=== PATIENT | female | born 2000 ===

== ENCOUNTER 2022-01-08 05:16 | Emergency (ER) | payer MEDICAID, SELFPAY ==
--- OUTSIDE RECORDS SUMMARY | 2022-01-08 05:28 | XMS_ITS | Encounter Summary ---
:[address] [facility] Address [address] [place] [address] Care Team Providers Name Role Phone Link, Shanda DUPREE Primary Care Provider Reason for Visit Reason Comments Psychotherapy Follow-up Encounter Details Date Type Department Care Team Description 06/24/2020 Telemedicine [facility] Laura Catherine Adjustment disorder Medical Psychology - [address] [facility] [place] [address] and depressed mood 111 [facility] (Primary Dx) [place] [address] [phone] Social History Tobacco Use Types Packs/Day Years Used Date Never Smoker Smokeless Tobacco: Never Used Alcohol Use Standard Drinks/Week Comments Not Currently 0 (1 standard drink = 0.6 oz pure alcoho l) Alcohol Habits Answer Date Recorded How often do you have a drink containing alcohol? Never 12/16/2020 How many drinks containing alcohol do you have on a typical Not asked day when you are drinking? How often do you have six or more drinks on one occasion? Ne gallo 12/16/2020 Comment: Not asked Social Isolation Answer Date Recorded In a typical week, how many times do you Twice a week 12/16/2020 talk on the phone with family, friends, or neighbors? How often do you get together with friends More than three t imes a week 12/16/2020 or relatives? How often do you attend christian or Never 2020 hoahaoism services? Do you belong to any clubs or No 12/16/2020 organizations such as christian groups, unions, fraternal or athletic groups, or school groups? How often do you attend meetings of the Never 12/16/2020 clubs or organizations you belong to? Are you now , , , Patient refused 12/16/2020 , never or living with a partner? Physical Activity Answer Date Recorded On average, how many days per week do you engage in moderate to 1 day 12/16/2020 strenuous exercise (like walking fast, running, jogging, dancing, swimming, biking, or other activities that cause a light or heavy sweat)? On average, how many minutes do you engage in exercise at th is 30 min 12/16/2020 level? Stress Answer Date Recorded Do you feel stress - tense, restless, nervous, or To some ex tent 12/16/2020 anxious, or unable to sleep at night because your mind is troubled all the time - these days? Financial Resource Strain Answer Date Recorded How hard is it for you to pay for the very basics like Not v divya hard 09/29/2021 food, housing, medical care, and heating? Intimate Partner Violence Answer Date Recorded Within the last year, have you been afraid of your partner o r No 12/16/2020 ex-partner? Within the last year, have you been humiliated or emotionall y No 12/16/2020 abused in other ways by your partner or ex-partner? Within the last year, have you been kicked, hit, slapped, or No 12/16/2020 otherwise physically hurt by your partner or ex-partner? Within the last year, have you been raped or forced to have any No 12/16/2020 kind of sexual activity by your partner or ex-partner? Food Insecurity Answer Date Recorded Within the past 12 months, you worried that your food Never true 09/29/2021 would run out before you got money to buy more. Within the past 12 months, the food you bought just Sometime s true 09/29/2021 didn't last and you didn't have money to get more. Transportation Needs Answer Date Recorded In the past 12 months, has lack of transportation kept you f rom No 09/29/2021 medical appointments or from getting medications? In the past 12 months, has lack of transportation kept you f rom No 09/29/2021 meetings, work, or getting things needed for daily living? Housing Stability Answer Date Recorded In the last 12 months, was there a time when you were not ab le No 09/29/2021 to pay the mortgage or rent on time? In the last 12 months, how many places have you lived? 2 09/29/2021 In the last 12 months, was there a time when you did not hav e a No 09/29/[address] or slept in a long-term (including now)? Sex Assigned at Date Recorded Female 12/16/2020 9:36 EDT documented as of this encounter Plan of Treatment Upcoming Encounters Date Type Specialty Care Team Description 03/15/2022 Office Visit Dermatology Kerry Clark MD 111 [facility] 3 [place] [address] (Wo rk) documented as of this encounter Visit Diagnoses Diagnosis Adjustment disorder with mixed anxiety a nd depressed mood - Primary documented in this encounter Care Teams Ux Developer Relationship Specialty Start Date End Date Shanda Gomes MD PCP - General 04/30/19 1 [facility] Level [address] [place] [address] documented as of this encounter
--- OUTSIDE RECORDS SUMMARY | 2022-01-08 05:28 | XMS_ITS | Encounter Summary ---
:2002 Author Organization [facility] Address [address] [place] [address] Care Team Providers Name Role Phone Link, Shanda DUPREE Primary Care Provider Reason for Visit Reason Comments Telemedicine Video Visit Encounter Details Date Type Department Care Team Description 12/23/2020 Telemedicine [facility] Laura Catherine Adjustment disorder Medical Psychology - [address] [facility] [place] [address] and depressed mood 111 [facility] (Primary Dx) [place] [address] [phone] Social History Tobacco Use Types Packs/Day Years [...] or relatives? How often do you attend jehovah's witness or Never 2020 jewish services? Do you belong to any clubs or No 12/16/2020 organizations such as jehovah's witness groups, unions, fraternal or athletic groups, or [...] place to sleep or slept in a retirement (including now)? Education Answer Date Recorded What is the highest level of school you have GED or equivale nt 12/16/2020 completed or the highest degree you have received? Sex Assigned at Date Recorded Female 12/16/2020 9:36 EDT COVID-19 Exposure Response Date Recorded In the last month, have you been in contact with No / Unsure 12/17/2020 9:28 EDT someone who was confirmed or suspected to have Coronavirus / COVID-19? documented as of this encounter Plan of Treatment Upcoming Encounters Date Type Specialty Care Team Description 03/15/2022 Office Visit Dermatology Kerry Clark MD 111 [facility] 3 [place] [address] (Wo rk) documented as of this encounter Visit Diagnoses Diagnosis Adjustment disorder with mixed anxiety a nd depressed mood - Primary documented in this encounter Care Teams Diabetes Solutions Specialist Relationship Specialty Start Date End Date Shanda Gomes MD PCP - General 04/30/19 1 [facility] Level [address] [place] [address] documented as of this encounter
--- OUTSIDE RECORDS SUMMARY | 2022-01-08 05:28 | XMS_ITS | Encounter Summary ---
:2002 Author Organization [facility] Address [address] [place] [address] Care Team Providers Name Role Phone Link, Shanda DUPREE Primary Care Provider Reason for Visit Reason Comments Psychotherapy Follow-up Encounter Details Date Type Department Care Team Description 07/22/2020 Telemedicine [facility] Laura Catherine Adjustment disorder Medical Psychology - [address] [facility] [place] [address] [address] [facility] (Primary [place]x) [place] [address] [phone] Social History Tobacco Use Types Packs/Day Years [...] or relatives? How often do you attend scientology or Never 2020 orthodoxy services? Do you belong to any clubs or No 12/16/2020 organizations such as scientology groups, unions, fraternal or athletic groups, or [...] place to sleep or slept in a group home (including now)? Sex Assigned at Date Recorded Female 12/16/2020 9:36 EDT documented as of this encounter Plan of Treatment Upcoming Encounters Date Type Specialty Care Team Description 03/15/2022 Office Visit Dermatology Kerry Clark MD 111 [facility] 3 [place] [address] (Wo rk) documented as of this encounter Visit Diagnoses Diagnosis Adjustment disorder with mixed anxiety a nd depressed mood - Primary documented in this encounter Care Teams Chipper Feeder Relationship Specialty Start Date End Date Shanda Gomes MD PCP - General 04/30/19 1 [facility] Level [address] [place] [address] documented as of this encounter
--- OUTSIDE RECORDS SUMMARY | 2022-01-08 05:28 | XMS_ITS | Encounter Summary ---
:2002 Author Organization [facility] Address [address] [place] [address] Care Team Providers Name Role Phone Link, Shanda DUPREE Primary Care Provider Reason for Visit Reason Comments Immunizations Here for a Menactra vaccinat ion- required by [facility] Encounter Details Date Type Department Care Team Description 06/02/2021 Nurse Only [facility], [facility] for [facility]eds (Primary Dx) Primary Care - [address] [address] Social History Tobacco Use Types Packs/Day Years [...] or relatives? How often do you attend jewish or Never 2020 evangelical services? Do you belong to any clubs or No 12/16/2020 organizations such as jewish groups, unions, fraternal or athletic groups, or [...] pay for the very basics like Not meagan divya hard 09/29/2021 food, housing, medical care, [...] place to sleep or slept in a [place] [facility] [place] (including now)? Education Answer Date Recorded What is the highest level of school you have GED or equivale nt 12/16/2020 completed or the highest degree you have received? Sex Assigned at Date Recorded Female 12/16/2020 9:36 EDT documented as of this encounter Progress Notes Dixie Valencia RN - 06/02/2021 0915 EST Pt walks into clinic today. Would like to sign up for classes today and unable to due to prompt by [facility] [employer] [facility] for meningococcal vaccination Reviewed documentation/ immunization record Phone call made to ID Spoke to ELVIS rios: Filemon Wilson Advised that [facility] is likely requiring Menactra vaccination due to the fact that it was administered >5 years ago. Prompted to check w/ [facility] Student [facility] currently closed for lunch hour Pt is in waiting room- would like to sign up for classes today, JE. Reviewed with POD/Td Sullivan MD and confirmed that it is ok for pt to receive administrationof Menactra today Administered without complication. I was supervised by Td Sullivan MD who was present and immediately available in the office suite. DIXIE VALENCIA RN 06/02/2021 12:35 Copy of imm record faxed to [facility] immunization compliance team at [phone] documented in this encounter Plan of Treatment Upcoming Encounters Date Type Specialty Care Team Description 03/15/2022 Office Visit Dermatology Kerry Clark MD 111 [facility], [facility], Level [address] [place], [place] [address] (Wo rk) documented as of this encounter Visit Diagnoses Diagnosis Need for vaccination - Primary Need for prophylactic vaccination and in oculation against unspecified single disease documented in this encounter Orders Immunization/Injection Count Last Ordered Date First O rdered Date MENINGOCOCCAL CONJUGATE (MCV4) VACCINE 1 1 (MENACTRA) 4-VALENT IM documented in this encounter Care Teams Balance Engineer Relationship Specialty Start Date End Date Shanda Gomes MD PCP - General 04/30/19 1 [facility] 3 [place] [address] documented as of this encounter
--- OUTSIDE RECORDS SUMMARY | 2022-01-08 05:28 | XMS_ITS | Encounter Summary ---
:2002 Author Organization [facility] Address [address] [place] [address] Care Team Providers Name Role Phone Link, Shanda DUPREE Primary Care Provider Reason for Visit Reason Comments Psychotherapy Follow-up Encounter Details Date Type Department Care Team Description 07/08/2020 Telemedicine [facility] Laura Catherine Adjustment disorder Medical Psychology - 111 [facility] [place] [address] and depressed mood 111 [facility] (Primary Dx) [place] [address] [phone] Social History Tobacco Use Types Packs/Day Years [...] or relatives? How often do you attend hindu or Never 2020 scientology services? Do you belong to any clubs or No 12/16/2020 organizations such as hindu groups, unions, fraternal or athletic groups, or [...] place to sleep or slept in a alf (including now)? Sex Assigned at Date Recorded Female 12/16/2020 9:36 EDT documented as of this encounter Plan of Treatment Upcoming Encounters Date Type Specialty Care Team Description 03/15/2022 Office Visit Dermatology Kerry Clark MD 111 [facility] 3 [place], [place] [address] (Wo rk) documented as of this encounter Visit Diagnoses Diagnosis Adjustment disorder with mixed anxiety a nd depressed mood - Primary documented in this encounter Care Teams Lead Pourer Relationship Specialty Start Date End Date Shanda Gomes MD PCP - General 04/30/19 1 [facility] Level [address] [place] [address] documented as of this encounter
--- OUTSIDE RECORDS SUMMARY | 2022-01-08 05:28 | XMS_ITS | Encounter Summary ---
:2002 Author Organization [facility] Address [address] [place] [address] Care Team Providers Name Role Phone Link, Shanda DUPREE Primary Care Provider Encounter Details Date Type Department Care Team Description 12/17/2020 Travel Social History Tobacco Use Types Packs/Day Years [...] or relatives? How often do you attend mu-ism or Never 2020 yarsanism services? Do you belong to any clubs or No 12/16/2020 organizations such as mu-ism groups, unions, fraternal or athletic groups, or [...] place to sleep or slept in a penitentiary (including now)? Education Answer Date Recorded What [...] Office Visit Dermatology Kerry Clark MD 111 [facility] Level [address] [place], [place] [address] (Wo rk) documented as of this encounter Visit Diagnoses Not on filedocumented in this encounter Care Teams Video Editing Intern Relationship Specialty Start Date End Date Shanda Gomes MD PCP - General 04/30/19 1 [facility] Level [address] [place] [address] documented as of this encounter
--- OUTSIDE RECORDS SUMMARY | 2022-01-08 05:28 | XMS_ITS | Encounter Summary ---
:[address] [facility] Address [address] [place] [address] Care Team Providers Name Role Phone Link, Shanda DUPREE Primary Care Provider Reason for Visit Reason Comments Immunizations Here today for her Men.B skip t Encounter Details Date Type Department Care Team Description 03/10/2021 Nurse Only [facility] [place] [facility] (Primary Dx) Primary Care - [address] [address] Social History Tobacco Use Types [...] or relatives? How often do you attend congregational or Never 2020 gnosticism services? Do you belong to any clubs or No 12/16/2020 organizations such as congregational groups, unions, fraternal or athletic groups, or [...] place to sleep or slept in a usp (including now)? Education Answer Date Recorded What is the highest level of school you have GED or equivale nt 12/16/2020 completed or the highest degree you have received? Sex Assigned at Date Recorded Female 12/16/2020 9:36 EDT documented as of this encounter Progress Notes Susu Hughes LPN - 03/10/2021 1415 EDT Bexsero given per PCP order. See immunization report for lot numbers. Patient tolerated as expected. I was supervised by Dr. Sullivan who was present and immediately available in the office suite. SUSU HUGHES LPN 03/10/2021 14:28 Patient Education Topic: Vaccine Method: Verbal Taught to: Patient Barriers: None Outcomes: independent Signature: documented in this encounter Plan of Treatment Upcoming Encounters Date Type Specialty Care Team Description 03/15/2022 Office Visit Dermatology Kerry Clark MD 111 [facility] 3 [place], [place] [address] (Wo rk) documented as of this encounter Visit Diagnoses Diagnosis Need for vaccination - Primary Need for prophylactic vaccination and in oculation against unspecified single disease documented in this encounter Orders Immunization/Injection Count Last Ordered Date First O rdered Date MENINGOCOCCAL B VACCINE (BEXSERO), 1 03/10/2021 RECOMBINANT, [facility] IM documented in this encounter Care Teams Band Nailer Relationship Specialty Start Date End Date Shanda Gomes MD PCP - General 04/30/19 1 [facility] Level [address] [place] [address] documented as of this encounter
--- OUTSIDE RECORDS SUMMARY | 2022-01-08 05:28 | XMS_ITS | Encounter Summary ---
:2002 Author Organization [facility] Address [address] [place] [address] Care Team Providers Name Role Phone Link, Shanda DUPREE Primary Care Provider Reason for Visit Reason Comments Telemedicine Video Visit Encounter Details Date Type Department Care Team Description 01/06/2021 Telemedicine [facility] Laura Catherine Adjustment disorder Medical Psychology - 111 [facility] [place] [address] and depressed mood 111 [facility] (Primary Dx) [place] [address] [phone] Social History Tobacco Use Types Packs/Day Years [...] or relatives? How often do you attend sabianist or Never 2020 temple services? Do you belong to any clubs or No 12/16/2020 organizations such as sabianist groups, unions, fraternal or athletic groups, or [...] place to sleep or slept in a jail (including now)? Education Answer Date Recorded What [...] Office Visit Dermatology Kerry Clark MD 111 [facility] 3 [place] [address] (Wo rk) documented as of this encounter Visit Diagnoses Diagnosis Adjustment disorder with mixed anxiety a nd depressed mood - Primary documented in this encounter Care Teams Iridologist Relationship Specialty Start Date End Date Shanda Gomes MD PCP - General 04/30/19 1 [facility] Level [address] [place] [address] documented as of this encounter
--- OUTSIDE RECORDS SUMMARY | 2022-01-08 05:28 | XMS_ITS | Encounter Summary ---
:2002 Author Organization [facility] Address [address] [place] [address] Care Team Providers Name Role Phone Link, Shanda DUPREE Primary Care Provider Reason for Visit Reason Comments Telemedicine Video Visit Encounter Details Date Type Department Care Team Description 08/12/2020 Telemedicine [facility] Laura Catherine Adjustment disorder Medical Psychology - 111 [facility] [place] [address] and depressed mood 111 [facility] (Primary Dx) [place] [address] [phone] Social History Tobacco Use Types Packs/Day Years [...] or relatives? How often do you attend bahai or Never 2020 christian services? Do you belong to any clubs or No 12/16/2020 organizations such as bahai groups, unions, fraternal or athletic groups, or [...] Office Visit Dermatology Kerry Clark MD 111 [facility] 3 [place], [place] [address] (Wo rk) documented as of this encounter Visit Diagnoses Diagnosis Adjustment disorder with mixed anxiety a nd depressed mood - Primary documented in this encounter Care Teams Stranding Machine Operator Relationship Specialty Start Date End Date Shanda Gomes MD PCP - General 04/30/19 1 [facility] Level [address] [place] [address] documented as of this encounter
--- OUTSIDE RECORDS SUMMARY | 2022-01-08 05:28 | XMS_ITS | Clinical Summary ---
:2000 Author Organization [facility] Address [address] [place] [address] Care Team Providers Name Role Phone Link, Shanda DUPREE Primary Care Provider Allergies No known active allergies Medications Medication Sig Dispensed Refills Start Date End Date Status Benzoyl Peroxide 10 % Use in shower on 227 g 5 12/17/2020 Active cleanserIndications: back twice weekly Acne vulgaris clindamycin (CLINDAGEL) Apply every 60 g 5 12/17/2020 Active 1 % gel morning tretinoin microspheres Apply to affect 45 g 12/17/2020 Active (RETIN-A MICRO) 0.04 % area(s) as gel directed. desogestreL-ethinyl Take 1 Tab by 28 Tab 4 12/17/2020 Active estradioL (APRI) mouth daily. 0.15-0.03 mg per tablet Active Problems Patient Care Coordination Note Formatting of this note might be differe nt from the original. Clinic: Please confirm that PT does not have a Middle Initial. Rachael Herb 10/05/2021 18:56 Problem Noted Date Acne vulgaris 09/12/2019 Immunizations Name Administration Dates Next Due Covid-19 mRNA Vaccine (PFIZER COVID-19) 12/06/2020, 11/16/19 21 PF 0.3 ml IM (12 yrs+) Hepatitis A Vaccine Ped-Adol 12/17/2020, 08/15/2019 (HAVRIX/VAQTA) 2 Dose IM Historical HPV Vaccine, Unspecified 10/11/2015 Historical Hepatitis B Vaccine, 01/05/2015, 06/09/2014, 090 03/2014 Unspecified Historical Meningococcal ACWY Vaccine, 06/09/2014 Unspecified Historical Meningococcal MCV4 Conjugate 03/31/2014 Vaccine, Unspecified Human Papillomavirus (HPV9) 9-Valent 04/30/2019 Vaccine (GARDASIL-9) IM Influenza Vaccine Quad PF 0.5 ml IM (6 04/30/2019 mos+) MMR Vaccine SQ 03/31/2015 MMR and Varicella Combined Vaccine 07/28/2013 (PROQUAD) SQ Meningococcal B Vaccine (BEXSERO), 04/28/2021, 03/10/2021 Recombinant, OMV IM Meningococcal Conjugate (MCV4) Vaccine 06/02/2021 (MENACTRA) 4-Valent IM Poliovirus Vaccine IPV IM OR SQ 08/15/2019, 07/28/2013 Td (Adult) (TDVAX) 2 Lf Vaccine =>7yo IM 08/15/2019 Tdap Vaccine =>7YO IM 07/31/2017, 07/28/2013 Varicella (Chickenpox) vaccine (VARIVAX) 08/15/2019 SQ Family History Medical History Relation Name Comments Diabetes Maternal Grandmother Cancer Other Maternal side- b reast Arthritis Paternal Grandmother Early Neg Hx Relation Name Status Comments Brother Jovani Alive Maternal Grandmother Other Paternal Grandmother Social History Tobacco Use Types Packs/Day Years [...] or relatives? How often do you attend rastafarian or Never 2020 druze services? Do you belong to any clubs or No 12/16/2020 organizations such as rastafarian groups, unions, fraternal or athletic groups, or [...] place to sleep or slept in a residential (including now)? Education Answer Date Recorded What is the highest level of school you have GED or equivale nt 12/16/2020 completed or the highest degree you have received? Sex Assigned at Date Recorded Female 12/16/2020 9:36 EDT Growth Chart Information Age Height Weight Ugkvuc-wst-[id number] BMI Head Head Circum Da te Percentile Percentile Circum Percentile 20 years 167.6 cm 68.3 kg 76.51 %* 12/17/ (5' 6) (150 lb 8 2020 oz) 19 years 69.9 kg (154 lb) 2019 19 years 167.3 cm 68.3 kg 80.60 %* (5' (150 lb 8 2019 5.87) oz) 19 years 167.9 cm 66 kg 74.92 %* (5' 6.1) (145 lb 8 2018 oz) * [facility] (Girls, 2-20 Years) Last Filed Vital Signs Vital Sign Reading Time Taken Comments Blood Pressure 108/68 12/17/2020 0929 EDT Pulse 89 06/17/2019 2347 EST Temperature 37 ??C (98.6 ??F) 09/12/2019 1055 EST Respiratory Rate 18 06/17/2019 2347 EST Oxygen Saturation 100% 06/17/2019 2347 EST Inhaled Oxygen Concentration - - Weight 68.3 kg (150 lb 8 oz) 12/17/2020 0929 EDT Height 167.6 cm (5' 6) 12/17/2020 0929 EDT Body Mass Index 24.29 12/17/2020 0929 EDT Body Mass Index Percentile 76.51 % 12/17/2020 09 EDT Growth Chart: [facility] (Girls, 2-20 Years) Plan of Treatment Upcoming Encounters Date Type Specialty Care Team Description 03/15/2022 Office Visit Dermatology Kerry Clark MD [address] [facility], [facility], Level [address] [place] [address] (Wo rk) Health Maintenance Due Date Last Done Comments Hepatitis C Screen 2002 HIV Screening 2018 Advance Directive 2020 Lipid Profile Screening 2020 (Cholesterol) 18 To 21 COVID-19 Vaccine (3 - Booster for 05/08/2021 12/06/2020, Pfizer series) Chlamydia Screening 12/17/2021 12/17/2020 Influenza Immunization (Adult) 04/22/2022 04/30/2019 (Season Ended) Behavioral Health Screen 09/28/2022 09/28/2021, 12/17/2020, 12/16/2020, Additional history exists Social Determinants Of Health 09/28/2022 09/28/2021 (SDOH) Preventive Care Visit 12/17/2022 12/17/2020 Tetanus (Adult) Immunization 08/15/2029 08/15/2019, 018, 07/28/2013 Pertussis (Adult) Immunization Completed 07/31/2017, 07/28 HPV Vaccines Completed 04/30/2019, 10/11/2015 Insurance Payer Benefit Plan Subscriber ID Effective Phone Address Typ e / Group Dates MEDICAID ACO MEDICAID ACO [id number] 2019-Pres [phone] [address] Medicaid [place] [address] [facility] [place] [id number] Pusztairenold,Vidya Personal/Family Self [address] ([address] [place] [address] Pusztairenold,Vidya Personal/Family Self [address] [place] [address] Pusztairenold,Vidya Personal/Family Self [address] [place] [address] Care Teams Technical Coordinator Relationship Specialty Start Date End Date Shanda Gomes MD PCP - General 04/30/[address] [facility] 3 [place] [address]
--- OUTSIDE RECORDS SUMMARY | 2022-01-08 05:28 | XMS_ITS | Encounter Summary ---
:2000 Author Organization [facility] Address [address] [place] [address] Care Team Providers Name Role Phone Link, Shanda DUPREE Primary Care Provider Reason for Visit Reason Comments Telemedicine Video Visit Encounter Details Date Type Department Care Team Description 11/18/2020 Telemedicine [facility] Laura Catherine Adjustment disorder Medical Psychology - [address] [facility] with mixed [place] [address] and depressed mood 111 [facility] (Primary Dx) [place] [address] [phone] Social History Tobacco Use Types Packs/Day Years [...] or relatives? How often do you attend amish or Never 2020 christian services? Do you belong to any clubs or No 12/16/2020 organizations such as amish groups, unions, fraternal or athletic groups, or [...] or slept in a retirement (including now)? Sex Assigned at Date Recorded Female 12/16/2020 9:36 EDT documented as of this encounter Plan of Treatment Upcoming Encounters Date Type Specialty Care Team Description 03/15/2022 Office Visit Dermatology Kerry Clark MD 111 [facility] 3 [place] [address] (Wo rk) documented as of this encounter Visit Diagnoses Diagnosis Adjustment disorder with mixed anxiety a nd depressed mood - Primary documented in this encounter Care Teams Compliance Monitor Relationship Specialty Start Date End Date Shanda Gomes MD PCP - General 04/30/19 1 [facility] Level [address] [place] [address] documented as of this encounter
--- OUTSIDE RECORDS SUMMARY | 2022-01-08 05:28 | XMS_ITS | Encounter Summary ---
:2002 Author Organization [facility] Address [address] [place] [address] Care Team Providers Name Role Phone Shanda Gomes MD Primary Care Provider Reason for Visit Reason Onset Date Comments Immunizations 04/26/2021 Encounter Details Date Type Department Care Team Description 04/26/2021 Telephone [facility] Zeb Gomes MD Immunizations Pediatric Primary Care - 1 [facility] Level [address] [place] [address] [phone] (Wo rk) Social History Tobacco Use Types Packs/Day Years [...] or relatives? How often do you attend jainism or Never 2020 orthodox services? Do you belong to any clubs or No 12/16/2020 organizations such as jainism groups, unions, fraternal or athletic groups, or [...] place to sleep or slept in a mcc (including now)? Education Answer Date Recorded What is the highest level of school you have GED or equivale nt 12/16/2020 completed or the highest degree you have received? Sex Assigned at Date Recorded Female 12/16/2020 9:36 EDT documented as of this encounter Miscellaneous Notes Telephone Encounter - Kirk Frederick RN - 04/26/2021 1140 EDT MCV4 #1: 03/31/14, #2: 06/09/14. Minimum interval 8 weeks was met. Men B #1: 03/10/21, second dose not yet administered, minimum interval 1 month. Needs appt for seconddose. PC to patient, reviewed information above, agrees to schedule. Call transferred. KIRK FREDERICK RN 04/26/2021 11:46 elephone Encounter - Toshia Brown - 04/26/2021 1136 EDT Is this patient needing another meningococcal? [facility] says she does documented in this encounter Plan of Treatment Upcoming Encounters Date Type Specialty Care Team Description 03/15/2022 Office Visit Dermatology Kerry Clark MD 111 [facility], [facility], Level [address] [place], [place] [address] (Wo rk) documented as of this encounter Visit Diagnoses Not on filedocumented in this encounter Care Teams City Assessor Relationship Specialty Start Date End Date Shanda Gomes MD PCP - General 04/30/19 1 [facility] Level 3 [place] [address] documented as of this encounter
--- OUTSIDE RECORDS SUMMARY | 2022-01-08 05:28 | XMS_ITS | Encounter Summary ---
:2002 Author Organization [facility] Address [address] [place] [address] Care Team Providers Name Role Phone Shanda Gomes MD Primary Care Provider Reason for Visit Reason Onset Date Comments Medication Management 12/17/2020 ? times per day to use Retin A Encounter Details Date Type Department Care Team Description 12/17/2020 Telephone [facility] Shanda Gomes M D Medication Management [facility] Pediatric [address] [place] [address] (? ti mes per day to Primary Care - Street use Retin A) [place] Level [address] [place] [phone] (Wo rk) Social History Tobacco Use Types [...] or relatives? How often do you attend pentecostalism or Never 2020 adventism services? Do you belong to any clubs or No 12/16/2020 organizations such as pentecostalism groups, unions, fraternal or athletic groups, or [...] / COVID-19? documented as of this encounter Miscellaneous Notes Telephone Encounter - Kirk Frederick RN - 12/17/2020 1212 EDT PC to pharmacy, provided instructions for once nightly. KIRK FREDERICK RN 12/17/2020 12:14 elephone Encounter - Shanda Gomes MD - 12/17/2020 1207 EDT Oh for goodness sakes. They called about this? Once nightly. Thank you! Shanda Gomes MD 12/17/2020 12:07 elephone Encounter - Kiarra Cuellar - 12/17/2020 1141 EDT Call from pharmacy with ? About Retin A gel Needs to know how many times per day to apply documented in this encounter Plan of Treatment Upcoming Encounters Date Type Specialty Care Team Description 03/15/2022 Office Visit Dermatology Kerry Clark MD 111 [facility], [facility], Level [address] [place] [address] (Wo rk) documented as of this encounter Visit Diagnoses Not on filedocumented in this encounter Care Teams Raw Finish Mill Operator Relationship Specialty Start Date End Date Link, MD Shanda PCP - General 04/30/19 1 [facility] Level [address] [place] [address] documented as of this encounter
--- OUTSIDE RECORDS SUMMARY | 2022-01-08 05:28 | XMS_ITS | Encounter Summary ---
:2002 Author Organization [facility] Address [address] [place] [address] Care Team Providers Name Role Phone Link, Shanda DUPREE Primary Care Provider Reason for Visit Reason Comments Telemedicine Video Visit Encounter Details Date Type Department Care Team Description 09/30/2020 Telemedicine [facility] Laura Catherine Adjustment disorder Medical Psychology - 111 [facility] [place] [address] and depressed mood 111 [facility] (Primary Dx) [place] [address] [phone] Social History Tobacco Use Types Packs/Day Years [...] or relatives? How often do you attend evangelical or Never 2020 orthodox services? Do you belong to any clubs or No 12/16/2020 organizations such as evangelical groups, unions, fraternal or athletic groups, or [...] Office Visit Dermatology Kerry Clark MD 111 [facility] 3 [place] [address] (Wo rk) documented as of this encounter Visit Diagnoses Diagnosis Adjustment disorder with mixed anxiety a nd depressed mood - Primary documented in this encounter Care Teams Inside Plant Supervisor Relationship Specialty Start Date End Date Shanda Gomes MD PCP - General 04/30/19 1 [facility] Level [address] [place] [address] documented as of this encounter
--- OUTSIDE RECORDS SUMMARY | 2022-01-08 05:28 | XMS_ITS | Encounter Summary ---
:2002 Author Organization [facility] Address [address] [place] [address] Care Team Providers Name Role Phone Link, Shanda DUPREE Primary Care Provider Reason for Visit Reason Comments Psychotherapy Follow-up Encounter Details Date Type Department Care Team Description 08/19/2020 Telemedicine [facility] Laura Catherine Adjustment disorder Medical Psychology - 111 [facility] [place] [address] and depressed mood 111 [facility] (Primary Dx) [place] [address] [phone] Social History Tobacco Use Types Packs/Day Years [...] do you attend scientology or Never 2020 jain services? Do you belong to any clubs [...] minutes do you engage in exercise at is 30 min 12/16/2020 level? Stress Answer [...] place to sleep or slept in a senior living (including now)? Sex Assigned at Date Recorded Female 12/16/2020 9:36 EDT documented as of this encounter Plan of Treatment Upcoming Encounters Date Type Specialty Care Team Description 03/15/2022 Office Visit Dermatology Kerry Clark MD 111 [facility], [facility] Level [address] [place], [place] [address] (Wo rk) documented as of this encounter Visit Diagnoses Diagnosis Adjustment disorder with mixed anxiety a nd depressed mood - Primary documented in this encounter Care Teams Adjuster And Inspector Relationship Specialty Start Date End Date Shanda Gomes MD PCP - General 04/30/19 1 [facility] Level [address] [place] [address] documented as of this encounter
--- OUTSIDE RECORDS SUMMARY | 2022-01-08 05:28 | XMS_ITS | Encounter Summary ---
:2002 Author Organization [facility] Address [address] [place] [address] Care Team Providers Name Role Phone Link, Shanda DUPREE Primary Care Provider Reason for Visit Reason Comments Telemedicine Video Visit Encounter Details Date Type Department Care Team Description 01/28/2021 Telemedicine [facility] Laura Catherine Adjustment disorder Medical Psychology - 111 [facility] [place] [address] and depressed mood 111 [facility] (Primary Dx) [place] [address] [phone] Social History Tobacco Use Types Packs/Day Years [...] do you attend jewish or Never 2020 rastafarian services? Do you belong to any clubs [...] place to sleep or slept in a nursing home (including now)? Education Answer Date Recorded What is the highest level of school you have GED or equivale nt 12/16/2020 completed or the highest degree you have received? Sex Assigned at Date Recorded Female 12/16/2020 9:36 EDT documented as of this encounter Plan of Treatment Upcoming Encounters Date Type Specialty Care Team Description 03/15/2022 Office Visit Dermatology Kerry Clark MD 111 [facility] Level [address] [place] [address] (Wo rk) documented as of this encounter Visit Diagnoses Diagnosis Adjustment disorder with mixed anxiety a nd depressed mood - Primary documented in this encounter Care Teams Inspector Type Relationship Specialty Start Date End Date Shanda Gomes MD PCP - General 04/30/19 1 [facility] Level [address] [place] [address] documented as of this encounter
--- OUTSIDE RECORDS SUMMARY | 2022-01-08 05:28 | XMS_ITS | Encounter Summary ---
:2002 Author Organization [facility] Address [address] [place] [address] Care Team Providers Name Role Phone Link, Sahnda DUPREE Primary Care Provider Reason for Visit Reason Comments Telemedicine Video Visit Encounter Details Date Type Department Care Team Description 09/23/2020 Telemedicine [facility] Laura Catherine Adjustment disorder Medical Psychology - 111 [facility] [place] [address] and depressed mood 111 [facility] (Primary Dx) [place] [address] [phone] Social History Tobacco Use Types Packs/Day Years [...] or relatives? How often do you attend advent or Never 2020 denominational services? Do you belong to any clubs or No 12/16/2020 organizations such as advent groups, unions, fraternal or athletic groups, or [...] place to sleep or slept in a correction (including now)? Sex Assigned at Date Recorded Female 12/16/2020 9:36 EDT documented as of this encounter Plan of Treatment Upcoming Encounters Date Type Specialty Care Team Description 03/15/2022 Office Visit Dermatology Kerry Clark MD 111 [facility] 3 [place] [address] (Wo rk) documented as of this encounter Visit Diagnoses Diagnosis Adjustment disorder with mixed anxiety a nd depressed mood - Primary documented in this encounter Care Teams Orthopaedic Surgeon Relationship Specialty Start Date End Date Shanda Gomes MD PCP - General 04/30/19 1 [facility] Level [address] [place] [address] documented as of this encounter
--- OUTSIDE RECORDS SUMMARY | 2022-01-08 05:28 | XMS_ITS | Encounter Summary ---
:2002 Author Organization [facility] Address [address] [place] [address] Care Team Providers Name Role Phone Link, Shanda DUPREE Primary Care Provider Reason for Visit Reason Comments Telemedicine Video Visit Encounter Details Date Type Department Care Team Description 12/16/2020 Telemedicine [facility] Laura Catherine Adjustment disorder Medical Psychology - 111 [facility] [place] [address] and depressed mood 111 [facility] (Primary Dx) [place] [address] [phone] Social History Tobacco Use Types Packs/Day Years [...] you attend jehovah's witness or Never 2020 anglican services? Do you belong to any clubs [...] place to sleep or slept in a care home (including now)? Education Answer Date Recorded [...] Office Visit Dermatology Kerry Clark MD 111 [facility] 3 [place] [address] (Wo rk) documented as of this encounter Visit Diagnoses Diagnosis Adjustment disorder with mixed anxiety a nd depressed mood - Primary documented in this encounter Care Teams Bioinformatics Support Specialist Relationship Specialty Start Date End Date Shanda Gomes MD PCP - General 04/30/19 1 [facility] Level [address] [place] [address] documented as of this encounter
--- OUTSIDE RECORDS SUMMARY | 2022-01-08 05:28 | XMS_ITS | Encounter Summary ---
:2002 Author Organization [facility] Address [address] [place] [address] Care Team Providers Name Role Phone Link, Shanda DUPREE Primary Care Provider Reason for Visit Reason Comments Psychotherapy Follow-up Encounter Details Date Type Department Care Team Description 07/01/2020 Telemedicine [facility] Laura Catherine Adjustment disorder Medical Psychology - [address] [facility] [place] [address] and depressed mood 111 [facility] (Primary Dx) [place] [address] [phone] Social History Tobacco Use Types Packs/Day Years [...] or relatives? How often do you attend zoroastrian or Never 2020 episcopalian services? Do you belong to any clubs or No 12/16/2020 organizations such as zoroastrian groups, unions, fraternal or athletic groups, or [...] place to sleep or slept in a [facility] (including now)? Sex Assigned at Date Recorded Female 12/16/2020 9:36 EDT documented as of this encounter Plan of Treatment Upcoming Encounters Date Type Specialty Care Team Description 03/15/2022 Office Visit Dermatology Kerry Clark MD 111 [facility] 3 [place] [address] (Wo rk) documented as of this encounter Visit Diagnoses Diagnosis Adjustment disorder with mixed anxiety a nd depressed mood - Primary documented in this encounter Care Teams Process Tech Relationship Specialty Start Date End Date Shanda Gomes MD PCP - General 04/30/19 1 [facility] Level [address] [place] [address] documented as of this encounter
--- OUTSIDE RECORDS SUMMARY | 2022-01-08 05:28 | XMS_ITS | Encounter Summary ---
:2002 Author Organization [facility] Address [address] [place] [address] Care Team Providers Name Role Phone Link, Shanda DUPREE Primary Care Provider Reason for Visit Reason Onset Date Comments Other 06/01/2021 Encounter Details Date Type Department Care Team Description 06/01/2021 Telephone [facility] Pediatric Ja Vale RN Other Primary Care - Haylee pruitt [address] [place] [address] Social History Tobacco Use Types Packs/Day [...] do you attend christian or Never 2020 alevism services? Do you belong to any clubs [...] slept in a group home (including now)? Education Answer Date Recorded What is the highest level of school you have GED or equivale nt 12/16/2020 completed or the highest degree you have received? Sex Assigned at Date Recorded Female 12/16/2020 9:36 EDT documented as of this encounter Miscellaneous Notes Telephone Encounter - Kirk Garcia RN - 06/03/2021 1629 EST Patient received dose 06/02. PCP aware, no further action required. KIRK GARCIA RN 06/03/2021 16:30 elephone Encounter - Shanda Gomes MD - 06/03/2021 1623 EST And by they, I mean [facility]. Shanda Gomes MD 06/03/2021 16:23 elephone Encounter - Shanda Gomes MD - 06/03/2021 1527 EST I have not heard back from ID. A third dose would be okay and this may be the way to go at this point. They are being totally unreasonable. Shanda Gomes MD 06/03/2021 15:28 elephone Encounter - Saul Barroso RN - 06/01/2021 1537 EST Duplicate encounter elephone Encounter - Valencia Hall MD - 06/01/2021 1516 EST Reviewed. See phone encounter 05/30/21 - Dr. Gomes's message from a few hours ago: A Third dose would be okay, but she also had the Bexsero vax, for Men B-and had two doses. I don't think she needs any additional Men vaccines. I can check with ID. Shanda Gomes MD 06/01/2021 12:40 It sounds like PCP is following up with Pedi ID. CC'ing Dr. Gomes on this update. Will defer to PCP and ID on next steps. Valencia Hall MD, MPH 06/01/21 15:17 Telephone Encounter - Ayah Vale, RN - 06/01/2021 1451 EST P/c to Crystal, Relayed Dr. Navarro message. Crystal states [facility] will not accept the letter that was sent. She did not receive another dose of MCV4 after the age of 18 even though she did receive it at 14 years and then 10 months after. There is a hold on her account and they will not allow her to register for classes unless she received the MCV4 vaccine. Will send to POD and will call her back. documented in this encounter Plan of Treatment Upcoming Encounters Date Type Specialty Care Team Description 03/15/2022 Office Visit Dermatology Kerry Clark MD 111 [facility], [facility] 3 [place], [place] [address] (Wo rk) documented as of this encounter Visit Diagnoses Not on filedocumented in this encounter Care Teams Pilates Instructor Relationship Specialty Start Date End Date Shanda Gomes MD PCP - General 04/30/19 1 [facility] Level [address] [place] [address] documented as of this encounter
--- OUTSIDE RECORDS SUMMARY | 2022-01-08 05:28 | XMS_ITS | Encounter Summary ---
:2002 Author Organization [facility] Address [address] [place] [address] Care Team Providers Name Role Phone Shanda Gomes MD Primary Care Provider Reason for Visit Reason Onset Date Comments Immunizations 05/30/2021 Encounter Details Date Type Department Care Team Description 05/30/2021 Telephone [facility] Children's [facility] LinkZeb MD Immunizations Pediatric Primary Care - 1 [facility] Level [address] [place] [phone] (Wo rk) Social History Tobacco Use Types [...] or relatives? How often do you attend confucianism or Never 2020 lutheran services? Do you belong to any clubs or No 12/16/2020 organizations such as confucianism groups, unions, fraternal or athletic groups, or [...] this encounter Miscellaneous Notes Telephone Encounter - Shanda Gomes MD - 06/01/2021 1237 EST A Third dose would be okay, but she also had the Bexsero vax, for Men B-and had two doses. I don't think she needs any additional Men vaccines. I can check with ID. Shanda Gomes MD 06/01/2021 12:40 elephone Encounter - Kirk Frederick RN - 05/31/2021 1444 EST Images from the original note were not included. From CDC: To PCP for review. KIRK FREDERICK RN 05/31/2021 14:45 elephone Encounter - Kiarra Cuellar - 05/31/2021 1430 EST Per patient school received letter but states still needs another MCV4 since she received this priorto turning 18 years of age. Needs to be done prior to 05/29 in order to register for next semester. Please advise Telephone Encounter - Kirk Frederick RN - 05/31/2021 0943 EST PC to patient, reviewed message from provider. Patient verbalizes understanding. Would appreciate letter from clinic to school. Attn: Justina Arciniega [facility]. Letter generated and sent via [employer] to number above. KIRK FREDERICK RN 05/31/2021 10:04 elephone Encounter - Toshia Brown - 05/31/2021 0938 EST Crystal calling back, please call. elephone Encounter - Shanda Gomes MD - 05/30/2021 1740 EST I agree. Maybe we can forward her imm record to her or be sure she knows where to find it in [facility]? Shanda Gomes MD 05/30/2021 17:40 elephone Encounter - Kirk Frederick RN - 05/30/2021 1338 EST Immunization record shows two historical MCV4 doses - #1 03/31/14, #2 06/09/14. Age 14 for both doses.10 week interval between doses. Catch up schedule calls for 8 week minimum interval. Should not require additional dose. From CDC: Catch-up vaccination ?? Age 13???17 years: 1 dose now and booster at age 16???18 years (minimum interval: 8 weeks) ?? Age 18???20 years: 1 dose Men B series completed 04/28/21. To PCP to confirm no additional doses MCV4 needed. KIRK FREDERICK RN 05/30/2021 13:52 elephone Encounter - Toshia Brown - 05/30/2021 1310 EST [facility] said she needs a MCV4 vaccine? documented in this encounter Plan of Treatment Upcoming Encounters Date Type Specialty Care Team Description 03/15/2022 Office Visit Dermatology Kerry Clark MD 111 [facility], [facility], Level [address] [place], [place] [address] (Wo rk) documented as of this encounter Visit Diagnoses Not on filedocumented in this encounter Care Teams Regulatory Product Manager Relationship Specialty Start Date End Date Shanda Gomes MD PCP - General 04/30/19 1 [facility] Level [address] [place] [address] documented as of this encounter
--- OUTSIDE RECORDS SUMMARY | 2022-01-08 05:28 | XMS_ITS | Encounter Summary ---
:2002 Author Organization [facility] Address [address] [place] [address] Care Team Providers Name Role Phone Link, Shanda DUPREE Primary Care Provider Reason for Visit Reason Comments Psychotherapy Follow-up Encounter Details Date Type Department Care Team Description 06/10/2020 Telemedicine [facility] Laura Catherine Adjustment disorder Medical Psychology - 111 [facility] [place] [address] and depressed mood 111 [facility] (Primary Dx) [place] [address] [phone] Social History Tobacco Use Types Packs/Day Years [...] or relatives? How often do you attend sabianism or Never 2020 voodoo services? Do you belong to any clubs or No 12/16/2020 organizations such as sabianism groups, unions, fraternal or athletic groups, or [...] documented as of this encounter Progress Notes Ann-Marie Torres - 06/10/2020 1500 EST Due to computer system disruption, additional clinical information for this visit will be scanned into the chart. For patients, please refer to guidance in [employer] on how to locate information. Generally this information will appear as a scanned documents saved in My Documents activity. documented in this encounter Plan of Treatment Upcoming Encounters Date Type Specialty Care Team Description 03/15/2022 Office Visit Dermatology Kerry Clark MD 111 [facility], [facility], Level 3 [place], [place] [address] (Wo rk) documented as of this encounter Visit Diagnoses Diagnosis Adjustment disorder with mixed anxiety a nd depressed mood - Primary documented in this encounter Care Teams Product Strategy Director Relationship Specialty Start Date End Date Shanda Gomes MD PCP - General 04/30/19 1 [facility] Level [address] [place] [address] documented as of this encounter
--- OUTSIDE RECORDS SUMMARY | 2022-01-08 05:28 | XMS_ITS | Encounter Summary ---
:2002 Author Organization [facility] Address [address] [place] [address] Care Team Providers Name Role Phone Link, Shanda DUPREE Primary Care Provider Reason for Visit Reason Comments Telemedicine Video Visit Encounter Details Date Type Department Care Team Description 10/07/2020 Telemedicine [facility] Laura Catherine Adjustment disorder Medical Psychology - 111 [facility] [place] [address] and depressed mood 111 [facility] (Primary Dx) [place] [address] [phone] Social History Tobacco Use Types Packs/Day Years [...] or relatives? How often do you attend zoroastrianism or Never 2020 confucianist services? Do you belong to any clubs or No 12/16/2020 organizations such as zoroastrianism groups, unions, fraternal or athletic groups, or [...] Office Visit Dermatology Kerry Clark MD 111 [facility] 3 [place], [place] [address] (Wo rk) documented as of this encounter Visit Diagnoses Diagnosis Adjustment disorder with mixed anxiety a nd depressed mood - Primary documented in this encounter Care Teams Repair Supervisor Relationship Specialty Start Date End Date Shanda Gomes MD PCP - General 04/30/19 1 [facility] Level [address] [place] [address] documented as of this encounter
--- OUTSIDE RECORDS SUMMARY | 2022-01-08 05:28 | XMS_ITS | Encounter Summary ---
:2002 Author Organization [facility] Address [address] [place] [address] Care Team Providers Name Role Phone Link, Shanda DUPREE Primary Care Provider Reason for Visit Reason Comments Telemedicine Video Visit Encounter Details Date Type Department Care Team Description 10/21/2020 Telemedicine [facility] Laura Catherine Adjustment disorder Medical Psychology - 111 [facility] [place] [address] and depressed mood 111 [facility] (Primary Dx) [place] [address] [phone] Social History Tobacco Use Types Packs/Day Years [...] or relatives? How often do you attend uatsdin or Never 2020 episcopal services? Do you belong to any clubs or No 12/16/2020 organizations such as uatsdin groups, unions, fraternal or athletic groups, or [...] place to sleep or slept in a assisted (including now)? Sex Assigned at Date Recorded Female 12/16/2020 9:36 EDT documented as of this encounter Plan of Treatment Upcoming Encounters Date Type Specialty Care Team Description 03/15/2022 Office Visit Dermatology Kerry Clark MD 111 [facility] 3 [place], [place] [address] (Wo rk) documented as of this encounter Visit Diagnoses Diagnosis Adjustment disorder with mixed anxiety a nd depressed mood - Primary documented in this encounter Care Teams Chemical Research Worker Relationship Specialty Start Date End Date Shanda Gomes MD PCP - General 04/30/19 1 [facility] Level [address] [place] [address] documented as of this encounter
--- OUTSIDE RECORDS SUMMARY | 2022-01-08 05:28 | XMS_ITS | Encounter Summary ---
:2002 Author Organization [facility] Address [address] [place] [address] Care Team Providers Name Role Phone Link, Shanda DUPREE Primary Care Provider Reason for Visit Reason Comments Telemedicine Video Visit Encounter Details Date Type Department Care Team Description 09/16/2020 Telemedicine [facility] Laura Catherine Adjustment disorder Medical Psychology - [address] [facility] [place] [address] and depressed mood 111 [facility] (Primary Dx) [place] [address] [phone] Social History Tobacco Use Types Packs/Day Years [...] or relatives? How often do you attend hoahaoism or Never 2020 christian services? Do you belong to any clubs or No 12/16/2020 organizations such as hoahaoism groups, unions, fraternal or athletic groups, or [...] or slept in a usp (including now)? Sex Assigned at Date Recorded Female 12/16/2020 9:36 EDT documented as of this encounter Plan of Treatment Upcoming Encounters Date Type Specialty Care Team Description 03/15/2022 Office Visit Dermatology Kerry Clark MD 111 [facility] 3 [place], [place] [address] (Wo rk) documented as of this encounter Visit Diagnoses Diagnosis Adjustment disorder with mixed anxiety a nd depressed mood - Primary documented in this encounter Care Teams Wire Stretcher Relationship Specialty Start Date End Date Shanda Gomes MD PCP - General 04/30/19 1 [facility] Level [address] [place] [address] documented as of this encounter
--- OUTSIDE RECORDS SUMMARY | 2022-01-08 05:28 | XMS_ITS | Encounter Summary ---
:2002 Author Organization [facility] Address [address] [place] [address] Care Team Providers Name Role Phone Link, Shanda DUPREE Primary Care Provider Reason for Visit Reason Comments Telemedicine Video Visit Encounter Details Date Type Department Care Team Description 01/13/2021 Telemedicine [facility] Laura Catherine Adjustment disorder Medical Psychology - 111 [facility] [place] [address] and depressed mood 111 [facility] (Primary Dx) [place] [address] [phone] Social History Tobacco Use Types Packs/Day Years [...] or relatives? How often do you attend roman catholic or Never 2020 holiness services? Do you belong to any clubs or No 12/16/2020 organizations such as roman catholic groups, unions, fraternal or athletic groups, or [...] place to sleep or slept in a fpc (including now)? Education Answer Date Recorded What [...] MD 111 [facility] 3 [place] [address] (Wo rk) documented as of this encounter Visit Diagnoses Diagnosis Adjustment disorder with mixed anxiety a nd depressed mood - Primary documented in this encounter Care Teams Margarine Maker Relationship Specialty Start Date End Date Shanda Gomes MD PCP - General 04/30/19 1 [facility] Level [address] [place] [address] documented as of this encounter
--- OUTSIDE RECORDS SUMMARY | 2022-01-08 05:28 | XMS_ITS | Encounter Summary ---
:2002 Author Organization [facility] Address [address] [place] [address] Care Team Providers Name Role Phone Link, Shanda DUPREE Primary Care Provider Reason for Visit Reason Comments Immunizations Here to receive Meningococca l B Bexsero injection Encounter Details Date Type Department Care Team Description 04/28/2021 Nurse Only [facility] Immunizatio n [facility] (Primary Dx) Primary Care - [address] [address] Social History Tobacco Use Types [...] or relatives? How often do you attend anabaptist or Never 2020 mormon services? Do you belong to any clubs or No 12/16/2020 organizations such as anabaptist groups, unions, fraternal or athletic groups, or [...] or slept in a assisted (including now)? Education Answer Date Recorded What is the highest level of school you have GED or equivale nt 12/16/2020 completed or the highest degree you have received? Sex Assigned at Date Recorded Female 12/16/2020 9:36 EDT documented as of this encounter Progress Notes Branden Dan LPN - 04/28/2021 0915 EDT Patient here for Meningococcal B Bexsero 1. Route: Intramuscular Location: Left 2. Med Lot #: [id number] 3. [facility] #: [id number] 4. Exp Date: 01/2022 5. Superintendent Police: C-Note,Srl Patient EducationTopic: Meningococcal B Bexsero Method: Handout and Verbal Taught to: Patient Barriers: None Outcomes: verbalized understanding I was supervised by Dr. Bambi Barker who was present and immediately available in the office suite. BRANDEN DAN LPN 04/28/2021 8:51 documented in this encounter Plan of Treatment Upcoming Encounters Date Type Specialty Care Team Description 03/15/2022 Office Visit Dermatology Kerry Clark MD 111 [facility] 3 [place], [place] [address] (Wo rk) documented as of this encounter Visit Diagnoses Diagnosis Immunization due - Primary Need for prophylactic vaccination and in oculation against unspecified single disease documented in this encounter Orders Immunization/Injection Count Last Ordered Date First O rdered Date MENINGOCOCCAL B VACCINE (BEXSERO), 1 04/28/2021 RECOMBINANT, [facility] documented in this encounter Care Teams Application Support Engineer Relationship Specialty Start Date End Date Shanda Gomes MD PCP - General 04/30/19 1 [facility] 3 [place] [address] documented as of this encounter
--- OUTSIDE RECORDS SUMMARY | 2022-01-08 05:28 | XMS_ITS | Encounter Summary ---
:2002 Author Organization [facility] Address [address] [place] [address] Care Team Providers Name Role Phone Link, Shanda DUPREE Primary Care Provider Reason for Visit Reason Comments Telemedicine Video Visit Encounter Details Date Type Department Care Team Description 09/09/2020 Telemedicine [facility] Laura Catherine Adjustment disorder Medical Psychology - 111 [facility] [place] [address] and depressed mood 111 [facility] (Primary Dx) [place] [address] [phone] Social History Tobacco Use Types Packs/Day Years [...] do you attend pentecostalism or Never 2020 quaker services? Do you belong to any clubs [...] slept in a care home (including now)? Sex Assigned at Date Recorded Female 12/16/2020 9:36 EDT documented as of this encounter Plan of Treatment Upcoming Encounters Date Type Specialty Care Team Description 03/15/2022 Office Visit Dermatology Kerry Clark MD 111 [facility] 3 [place], [place] [address] (Wo rk) documented as of this encounter Visit Diagnoses Diagnosis Adjustment disorder with mixed anxiety a nd depressed mood - Primary documented in this encounter Care Teams Customer Leader Relationship Specialty Start Date End Date Shanda Gomes MD PCP - General 04/30/19 1 [facility] Level [address] [place] [address] documented as of this encounter
--- OUTSIDE RECORDS SUMMARY | 2022-01-08 05:28 | XMS_ITS | Encounter Summary ---
:2002 Author Organization [facility] Address [address] [place] [address] Care Team Providers Name Role Phone Link, Shanda DUPREE Primary Care Provider Reason for Visit Reason Comments Telemedicine Video Visit Encounter Details Date Type Department Care Team Description 12/30/[address] [facility] Laura Catherine Adjustment disorder Medical Psychology - 111 [facility] [place] [address] and depressed mood 111 [facility] (Primary Dx) [place] [address] [phone] Social History Tobacco Use Types Packs/Day Years [...] do you attend pentecostalism or Never 2020 pentecostal services? Do you belong to any clubs [...] place to sleep or slept in a skilled nursing (including now)? Education Answer Date Recorded What [...] Office Visit Dermatology Kerry Clark MD 111 [facility] 3 [place], [place] [address] (Wo rk) documented as of this encounter Visit Diagnoses Diagnosis Adjustment disorder with mixed anxiety a nd depressed mood - Primary documented in this encounter Care Teams Biometrics Instructor Relationship Specialty Start Date End Date Shanda Gomes MD PCP - General 04/30/19 1 [facility] Level 3 [place] [address] documented as of this encounter
--- OUTSIDE RECORDS SUMMARY | 2022-01-08 05:28 | XMS_ITS | Encounter Summary ---
:2002 Author Organization [facility] Address [address] [place] [address] Care Team Providers Name Role Phone Link, Shanda DUPREE Primary Care Provider Reason for Visit Reason Comments Telemedicine Video Visit Encounter Details Date Type Department Care Team Description 10/28/2020 Telemedicine [facility] Luara Catherine Adjustment disorder Medical Psychology - 111 [facility] [place] [address] and depressed mood 111 [facility] (Primary Dx) [place] [address] [phone] Social History Tobacco Use Types Packs/Day Years [...] or relatives? How often do you attend voodoo or Never 2020 presybeterian services? Do you belong to any clubs or No 12/16/2020 organizations such as voodoo groups, unions, fraternal or athletic groups, or [...] or slept in a jail (including now)? Sex Assigned at Date Recorded Female 12/16/2020 9:36 EDT documented as of this encounter Plan of Treatment Upcoming Encounters Date Type Specialty Care Team Description 03/15/2022 Office Visit Dermatology Kerry Clark MD 111 [facility] 3 [place], [place] [address] (Wo rk) documented as of this encounter Visit Diagnoses Diagnosis Adjustment disorder with mixed anxiety a nd depressed mood - Primary documented in this encounter Care Teams Dividend Clerk Relationship Specialty Start Date End Date Shanda Gomes MD PCP - General 04/30/19 1 [facility] Level 3 [place] [address] documented as of this encounter
--- OUTSIDE RECORDS SUMMARY | 2022-01-08 05:28 | XMS_ITS | Encounter Summary ---
:2002 Author Organization [facility] Address [address] [place] [address] Care Team Providers Name Role Phone Link, Shanda DUPREE Primary Care Provider Reason for Visit Reason Comments Telemedicine Video Visit Encounter Details Date Type Department Care Team Description 08/26/2020 Telemedicine [facility] Laura Catherine Adjustment disorder Medical Psychology - 111 [facility] [place] [address] and depressed mood 111 [facility] (Primary Dx) [place] [address] [phone] Social History Tobacco Use Types Packs/Day Years [...] do you attend advent or Never 2020 mandaeism services? Do you belong to any clubs [...] place to sleep or slept in a fdc (including now)? Sex Assigned at Date Recorded Female 12/16/2020 9:36 EDT documented as of this encounter Plan of Treatment Upcoming Encounters Date Type Specialty Care Team Description 03/15/2022 Office Visit Dermatology Kerry Clark MD 111 [facility] 3 [place], [place] [address] (Wo rk) documented as of this encounter Visit Diagnoses Diagnosis Adjustment disorder with mixed anxiety a nd depressed mood - Primary documented in this encounter Care Teams Exhaust Worker Relationship Specialty Start Date End Date Shanda Gomes MD PCP - General 04/30/19 1 [facility] Level 3 [place] [address] documented as of this encounter
--- OUTSIDE RECORDS SUMMARY | 2022-01-08 05:28 | XMS_ITS | Encounter Summary ---
:2002 Author Organization [facility] Address [address] [place] [address] Care Team Providers Name Role Phone Link, Shanda DUPREE Primary Care Provider Reason for Visit Reason Comments Telemedicine Video Visit Encounter Details Date Type Department Care Team Description 12/02/2020 Telemedicine [facility] Laura Catherine Adjustment disorder Medical Psychology - 111 [facility] [place] [address] [address] mood [address] [facility] (Primary Dx) [place] [address] [phone] Social History Tobacco Use Types Packs/Day Years [...] do you attend scientology or Never 2020 hindu services? Do you belong to any clubs [...] or slept in a residential (including now)? Sex Assigned at Date Recorded [...] Visit Dermatology Kerry Clark MD 111 [facility] 3 [place] [address] (Wo rk) documented as of this encounter Visit Diagnoses Diagnosis Adjustment disorder with mixed anxiety a nd depressed mood - Primary documented in this encounter Care Teams Pan Puller Relationship Specialty Start Date End Date Shanda Gomes MD PCP - General 04/30/19 1 [facility] Level [address] [place] [address] documented as of this encounter
--- OUTSIDE RECORDS SUMMARY | 2022-01-08 05:28 | XMS_ITS | Encounter Summary ---
:2002 Author Organization [facility] Address [address] [place] [address] Care Team Providers Name Role Phone Link, Shanda DUPREE Primary Care Provider Reason for Visit Reason Comments Telemedicine Video Visit Encounter Details Date Type Department Care Team Description 11/11/2020 Telemedicine [facility] Laura Catherine Adjustment disorder Medical Psychology - 111 [facility] [place] [address] and depressed mood 111 [facility] (Primary Dx) [place] [address] [phone] Social History Tobacco Use Types Packs/Day Years [...] or relatives? How often do you attend spiritism or Never 2020 buddhism services? Do you belong to any clubs or No 12/16/2020 organizations such as spiritism groups, unions, fraternal or athletic groups, or [...] Office Visit Dermatology Kerry Clark MD 111 [facility] 3 [place] [address] (Wo rk) documented as of this encounter Visit Diagnoses Diagnosis Adjustment disorder with mixed anxiety a nd depressed mood - Primary documented in this encounter Care Teams Staff Radiographer Relationship Specialty Start Date End Date Shanda Gomes MD PCP - General 04/30/19 1 [facility] Level 3 [place] [address] documented as of this encounter
--- OUTSIDE RECORDS SUMMARY | 2022-01-08 05:28 | XMS_ITS | Encounter Summary ---
:2002 Author Organization [facility] Address [address] [place] [address] Care Team Providers Name Role Phone Link, Shanda DUPREE Primary Care Provider Reason for Visit Reason Comments Telemedicine Video Visit Encounter Details Date Type Department Care Team Description 12/09/2020 Telemedicine [facility] Laura Catherine Adjustment disorder Medical Psychology - 111 [facility] [place] [address] and depressed mood [address] [facility] (Primary Dx) [place] [address] [phone] Social History Tobacco Use Types Packs/Day Years [...] you attend roman catholic or Never 2020 taoist services? Do you belong to any clubs [...] place to sleep or slept in a fci (including now)? Sex Assigned at Date Recorded Female 12/16/2020 9:36 EDT documented as of this encounter Plan of Treatment Upcoming Encounters Date Type Specialty Care Team Description 03/15/2022 Office Visit Dermatology Kerry Clark MD 111 [facility] 3 [place], [place] [address] (Wo rk) documented as of this encounter Visit Diagnoses Diagnosis Adjustment disorder with mixed anxiety a nd depressed mood - Primary documented in this encounter Care Teams Administrative Job Titles Relationship Specialty Start Date End Date Shanda Gomes MD PCP - General 04/30/19 1 [facility] Level 3 [place] [address] documented as of this encounter
--- OUTSIDE RECORDS SUMMARY | 2022-01-08 05:28 | XMS_ITS | Encounter Summary ---
:2000 Author Organization [facility] Address [address] [place] [address] Care Team Providers Name Role Phone Shanda Gomes MD Primary Care Provider Reason for Visit Reason Comments Well Child Here today for her 20 yr old ck up Encounter Details Date Type Department Care Team Description 12/17/2020 Health Supervision [facility] Children's Shanda Gomes MD Encounter for routine child health exami [facility] without abnormal findings (Primary Dx); Hospital Pediatric 1 [facility] screening for STI (sexually transmitted infection); Primary Care - [place] Need for vaccination; [place] Level 3 Encounter for dietary counseling and chris veillance; 1 [place], [place] Exercise counseling; [place] [address] Screening for depression; [address] Acne vulgaris Social History Tobacco Use Types Packs/Day Years [...] or relatives? How often do you attend christianity or Never 2020 buddhist services? Do you belong to any clubs or No 12/16/2020 organizations such as christianity groups, unions, fraternal or athletic groups, or [...] / COVID-19? documented as of this encounter Last Filed Vital Signs Vital Sign Reading Time Taken Comments Blood Pressure 108/68 12/17/2020 09 EDT Pulse - - Temperature - - Respiratory Rate - - Oxygen Saturation - - Inhaled Oxygen Concentration - - Weight 68.3 kg (150 lb 8 oz) 12/17/2020 09 EDT Height 167.6 cm (5' 6) 12/17/2020 09 EDT Body Mass Index 24.29 12/17/2020 09 EDT Body Mass Index Percentile 76.51 % 12/17/2020 09 EDT Growth Chart: [facility] (Girls, 2-20 Years) documented in this encounter Patient Instructions Patient InstructionsShanda Gomes MD - 12/17/2020 9:30 EDT Images from the original note were not included. [employer] BRIGHT FUTURES HANDOUT PARENT 15 THROUGH 17 YEAR VISITS Here are some suggestions from Bright Futures experts that may be of value to your family. HOW YOUR FAMILY IS DOING YOUR TEEN'S FEELINGS ? Set aside time to be with your teen and really listen to her hopes and concerns. ? Support your teen in finding activities that interest him. Encourage your teen to help others in the community. ? Help your teen find and be a part of positive after-school activities and sports. ? Support your teen as she figures out ways to deal with stress, solve problems, and make decisions. ? Help your teen deal with conflict. ? If you are worried about your living or food situation, talk with us. Community agencies and programs such as [employer] can also provide information and assistance. ? If you are concerned that your teen is sad, depressed, nervous, irritable, hopeless, or angry, let us know. ? If you have questions about your teen's sexual development, you can always talk with us. YOUR GROWING AND CHANGING TEEN HEALTHY BEHAVIOR CHOICES ? Make sure your teen visits the dentist at least twice a year. ? Give your teen a fluoride supplement if the dentist recommends it. ? Support your teen's healthy body weight and help him be a healthy eater. o Provide healthy foods. o Eat together as a family. o Be a role model. ? Help your teen get enough calcium with low-fat or fat-free milk, low-fat yogurt, and cheese. ? Encourage at least 1 hour of physical activity a day. ? Praise your teen when she does something well, not just when she looks good. ? Know your teen's friends and their parents. Be aware of where your teen is and what he is doing at all times. ? Talk with your teen about your values and your expectations on drinking, drug use, tobacco use, driving, and sex. ? Praise your teen for healthy decisions about sex, tobacco, alcohol, and other drugs. ? Be a role model. ? Know your teen's friends and their activities together. ? Lock your liquor in a cabinet. ? Store prescription medications in a locked cabinet. ? Be there for your teen when she needs support or help in making healthy decisions about her behavior. SAFETY ? Encourage safe and responsible driving habits. o Lap and shoulder seat belts should be used by everyone. o Limit the number of friends in the car and ask your teen to avoid driving at night. o Discuss with your teen how to avoid risky situations, who to call if your teen feels unsafe, and what you expect of your teen as a m48/m60 tank driver. o Do not tolerate drinking and driving. ? If it is necessary to keep a gun in your home, store it unloaded and locked with the ammunition locked separately from the gun. Consistent with [place] [employer]: Guidelines for Health Supervision of Infants, Children And Adolescents, 4th Edition For more information, go to https://brightfutures.aap.org. The information contained in this handout should not be used as a substitute for the medical care and advice of your lap layer. There may be variations in treatment that your lap layer may recommend based on individual facts and circumstances. Original handout included as part of the Bright Futures Tool and Resource Kit, 2nd Edition. Inclusion in this handout does not imply an endorsement by the [employer] [employer] (AAP).The AAP is not responsible for the content of the resources mentioned in this handout. Web site addresses are as current as possible but may change at any time. The [employer] [employer] (AAP) does not review or endorse any modifications made to this handout and in no event shall the AAP be liable for any such changes. ?? 2019 [employer]. All rights reserved. [employer] Bright Futures https://brightfutures.aap.org documented in this encounter Ordered Prescriptions Prescription Sig Dispensed Refills Start Date End Date desogestreL-ethinyl Take 1 Tab by mouth 28 Tab 4 021 estradioL (APRI) 0.15-0.03 daily. mg per tablet tretinoin microspheres Apply to affect 45 g 5 12/18/19 21 (RETIN-A MICRO) 0.04 % gel area(s) as directed. clindamycin (CLINDAGEL) 1 Apply every morning 60 g 5 0 12/17/2020 % gel Benzoyl Peroxide 10 % Use in shower on back 227 g 5 cleanserIndications: Acne twice weekly vulgaris documented in this encounter Progress Notes Shanda Gomes MD - 12/17/2020 0902 EDT ADOLESCENT HEALTH VISIT 15-18 YEARS Assessment & Plan Crystal was seen today for well child. Diagnoses and all orders for this visit: Encounter for routine child health examination without abnormal findings Routine screening for STI (sexually transmitted infection) - HIV 1/2 ANTIGEN AND ANTIBODY, 4TH GENERATION; Future Need for vaccination - HEPATITIS A VACCINE PED-ADOL (HAVRIX/VAQTA) 2 DOSE IM Encounter for dietary counseling and surveillance Exercise counseling Screening for depression Acne vulgaris - Benzoyl Peroxide 10 % cleanser; Use in shower on back twice weekly Other orders - clindamycin (CLINDAGEL) 1 % gel; Apply every morning - tretinoin microspheres (RETIN-A MICRO) 0.04 % gel; Apply to affect area(s) as directed. - desogestreL-ethinyl estradioL (APRI) 0.15-0.03 mg per tablet; Take 1 Tab by mouth daily. 1)Restart benzoyl peroxide wash, clindagel, t-retinoin. Trial for darkening skin, which seems to be hyperpigmentation after having a rash. If not changed, we can refer to derm. Also, restart for acne on back, if after about three months, no change, refer derm. 2)Three months of Apri Rx'd plus one year of refills. 3)Rec HIV screening within next year. 4)If needs help transitioning to [employer] [facility] for college, let us know. Normal growth and pubertal development Immunizations reviewed and administered as needed Fit for competitive sports No limitations Filling And Stapling Machine Operator was not used. The following anticipatory guidance topics were reviewed with the family: Topic Comments Yes Social Determinants of Health ??? Interpersonal violence ??? Living situation and food security ??? Family substance use ??? Connectedness with family, peers, and community ??? School performance ??? Coping with stress and decision-making Yes Development and Mental Health ??? Family rules and routines, concern for others, respect for others ??? Patience and control over anger ??? Mood regulation and mental health ??? Sexuality Yes Physical Growth and Development ??? Oral health ??? Body image ??? Healthy eating ??? Physical activity and sleep Yes Risk Reduction ??? and sexually transmitted infections ??? Tobacco, e-cigarettes, alcohol, prescription or street drugs ??? Acoustic trauma Yes Safety ??? Seat belt and helmet use ??? Sun protection ??? Substance use and riding in a vehicle ??? Firearm safety Anticipatory guidance educational materials given to the family: Yes Subjective/HPI Crystal Broderick is a 20 y.o. female who is brought in by her Self for this well child visit. Interval History Chief Complaint: Chief Complaint Patient presents with ??? Well Child Here today for her 20 yr old ck up Concerns addressed: Increasing back acne. Also would like to get refills of OCP through us. Other interval care received outside this practice: No Social History & Review of Systems Home: Lives with mom, and younger brother. Job: Yes, [employer] Education: School: Graduating from [employer] this year, will be at [employer] next year. Problems at school:No. Career Plans: College Screentime: limits Exercise: Working towards a habit of early am workouts Sleep: uses melatonin occasionally. . Diet/Nutrition: Milk, Meat, Variety and NL body image. Dental: Brushing: twice daily . Sexuality: Sexually active: Yes, discussed contraception and safe sex and Orientation: Discussed sexual orientation. Behavioral Health Screen: Tobacco use: Social History Tobacco Use Smoking Status Never Smoker Smokeless Tobacco Never Used CRAFFT Alcohol: (P) 0 Marijuana: (P) 1 Days Other: (P) 0 Car: (P) No Total Score: Interpretation: PHQ-9 Total Score: (P) 7 Interpretation: If Evaluating for Depression Severity: (P) Mild Depression Andrea-7 Andrea-2 Subtotal: Andrea-7 Total Score: Interpretation: Intervention: no intervention needed. Repeat in 1 year. Ongoing support. Social Determinants of Health Screening: Respondent: Hunger Vital Sign Result: Housing: Housing Quality: Utilities: Transportation: Physical Hurt: Never Insult/Talk Down: Never Threaten: Never Scream/Curse: Never Intervention(s): Caregiver Depression Screen Respondent: Mother Caregiver PHQ-2 Subtotal: 2 Total Score: Interpretation: Intervention: screening not done All systems reviewed and are normal. Physical Exam Vitals: BP 108/68 Ht 167.6 cm (66) Wt 68.3 kg (150 lb 8 oz) BMI 24.29 kg/m?? 77 %ile (Z= 0.72) based on CDC (Girls, 2-20 Years) BMI-for-age based on BMI available as of 12/17/2020. 75 %ile (Z= 0.68) based on CDC (Girls, 2-20 Years) Vtraocy-lkr-rsz data based on Stature recorded on12/17/2020. 83 %ile (Z= 0.95) based on CDC (Girls, 2-20 Years) itqaam-vwx-ayu data using vitals from 12/17/2020. Blood pressure percentiles are not available for patients who are 18 years or older. General: Alert and No apparent distress Growth: Normal interval growth Head/Neck: Supple, No adenopathy and Normal thyroid Eyes: BABATUNDE, Full EOM and Normal fundi Ears: Canals clear, TMs clear and Light reflex present Nose:: Nares patent and No discharge Mouth: Normal dentition and MMM Nodes: No Axillary/Inguinal Adenopathy or Tenderness Chest: BS Clear/ R=L and No retractions Breast: Deferred CVS: RRR, No Murmur and Normal Pulses Abdomen: Soft, Non-tender, No HSM and No mass /Pelvic: Deferred MSK: Full ROM and No scoliosis Skin: No rash, No atypical nevi and Mild or no acne Neuro: Normal tone, reflexes and strength Educational Therapist offered, patient declined. Shanda Gomes MD 12/17/2020 10:29 documented in this encounter Miscellaneous Notes Addendum Note - Shanda Gomes MD - 12/17/2020 0930 EDT Addended by: SHANDA GOMES on: 12/17/2020 10:42 Modules accepted: Orders documented in this encounter Plan of Treatment Upcoming Encounters Date Type Specialty Care Team Description 03/15/2022 Office Visit Dermatology Kerry Clark MD [address] [facility], Level 3 [place], [place] [address] (Wo rk) documented as of this encounter Procedures Procedure Name Priority Date/Time Associated Diagnosis Comme nts CHLAMYDIA/N. Routine 12/17/2020 10:44 Routine screening Result s for this GONORRHOEAE EDT for STI (sexually procedure are in AMPLIFIED RNA transmitted the results infection) section. documented in this encounter Results CHLAMYDIA/N. GONORRHOEAE AMPLIFIED RNA (12/17/2020 10:44 EDT) Pathologist Sig nature Gonococcus Result Negative Negative [facility] Chlamydia Result Negative Negative [facility] Specimen Urine - Urine, Dirty Urine Narrative [facility] - 12/20/2020 15:14 EDT A first catch urine specimen is acceptab le for detection of Gonorrhea and Chlamydia, but might detect up to 10% fewer infecti ons when compared with vaginal and endocervical swab samples. Performing Organization Address City/State/ZIP Code Phon e Number [facility] [address] [place] [address] SERVICES documented in this encounter Visit Diagnoses Diagnosis Encounter for routine child health exami nation without abnormal findings - Primary Routine infant or child health check Routine screening for STI (sexually crow smitted infection) Screening examination for venereal disea se Need for vaccination Need for prophylactic vaccination and in oculation against unspecified single disease Encounter for dietary counseling and chris veillance Dietary surveillance and counseling Exercise counseling Screening for depression Acne vulgaris Other acne documented in this encounter Discontinued Medications Medication Sig Discontinue Reason Start Date End Date sulfamethoxazole-trimetho Take 1 Tab by mouth Therapy completed 12/17/2020 prim every 12 hours. (BACTRIM/CO-TRIMOXAZOLE DS) 800-160 mg per tablet mupirocin (BACTROBAN) 2 % Apply twice daily Therapy completed 09/1212/17/2020 ointment sertraline (ZOLOFT) 25 mg Take 1 Tab by mouth Therapy completed 10/201912/17/2020 tablet daily. Benzoyl Peroxide 10 % Use in shower on Reorder 04/30/2019 cleanserIndications: Acne back twice weekly vulgaris clindamycin (CLINDAGEL) 1 Apply every morning Reorder 09/12/19 20 12/17/2020 % gel tretinoin microspheres Apply to affect Reorder 09/12/2019 (RETIN-A MICRO) 0.04 % area(s) as gel directed. documented as of this encounter Orders Immunization/Injection Count Last Ordered Date First O rdered Date HEPATITIS A VACCINE PED-ADOL 1 12/17/2020 (HAVRIX/VAQTA) 2 DOSE IM documented in this encounter Care Teams Mold Blower Relationship Specialty Start Date End Date Shanda Gomes MD PCP - General 04/30/19 1 [facility] [address] [place] [address] documented as of this encounter
--- OUTSIDE RECORDS SUMMARY | 2022-01-08 05:29 | XMS_ITS | Encounter Summary ---
:2002 Author Organization [facility] Address [address] [place] [address] Care Team Providers Name Role Phone Essence Hall MD Primary Care Provider [phone] Shanda Gomes MD Primary Care Provider Reason for Visit Reason Onset Date Comments Appointment Related 03/31/2019 Encounter Details Date Type Department Care Team Description 03/31/2019 Telephone [facility] Essence Hall, [place] o[facility]ment [facility] Pediatric Primary Care - [address] [phone] (Wo rk) Social History Tobacco Use Types Packs/Day Years Used Date Never Assessed Alcohol Habits Answer Date Recorded How often [...] or relatives? How often do you attend orthodox or Never 2020 quaker services? Do you belong to any clubs or No 12/16/2020 organizations such as orthodox groups, unions, fraternal or athletic groups, or [...] place to sleep or slept in a half-way (including now)? Sex Assigned at Date Recorded Female 12/16/2020 9:36 EDT documented as of this encounter Miscellaneous Notes Telephone Encounter - Toshia Shelton - 03/31/2019 0855 EDT Has a NPV 04/30/2019 Mom will be dropping off records before appointment documented in this encounter Plan of Treatment Upcoming Encounters Date Type Specialty Care Team Description 03/15/2022 Office Visit Dermatology Kerry Clark MD [address] [facility] Level 3 [place], [place] [address] (Wo rk) documented as of this encounter Visit Diagnoses Not on filedocumented in this encounter Care Teams Lye Treater Relationship Specialty Start Date End Date Essence Hall MD PCP - General 03/31/19 04/29/19 Shanda Gomes MD PCP - General 04/30/19 1 [facility] Level [address] [place] [address] documented as of this encounter
--- OUTSIDE RECORDS SUMMARY | 2022-01-08 05:29 | XMS_ITS | Encounter Summary ---
:2002 Author Organization [facility] Address [address] [place] [address] Care Team Providers Name Role Phone Link, Shanda DUPREE Primary Care Provider Reason for Visit Reason Comments Psychotherapy Follow-up Encounter Details Date Type Department Care Team Description 06/03/2020 Telemedicine [facility] Laura Catherine Adjustment disorder Medical Psychology - 111 [facility] [place] [address] and depressed mood 111 [facility] (Primary Dx) [place] [address] [phone] Social History Tobacco Use Types Packs/Day Years [...] or relatives? How often do you attend denominational or Never 2020 mu-ism services? Do you belong to any clubs or No 12/16/2020 organizations such as denominational groups, unions, fraternal or athletic groups, or [...] slept in a skilled nursing (including now)? Sex Assigned at Date Recorded Female 12/16/2020 9:36 EDT documented as of this encounter Progress Notes Ann-Marie Torres - 06/03/2020 1500 EST Due to computer system disruption, additional clinical information for this visit will be scanned into the chart. For patients, please refer to guidance in [employer] on how to locate information. Generally this information will appear as a scanned documents saved in My Documents activity. documented in this encounter Plan of Treatment Upcoming Encounters Date Type Specialty Care Team Description 03/15/2022 Office Visit Dermatology Kerry Clark MD 111 [facility], [facility], Level [address] [place], [place] [address] (Wo rk) documented as of this encounter Visit Diagnoses Diagnosis Adjustment disorder with mixed anxiety a nd depressed mood - Primary documented in this encounter Care Teams Pool Manager Relationship Specialty Start Date End Date Shanda Gomes MD PCP - General 04/30/19 1 [facility] Level [address] [place] [address] documented as of this encounter
--- OUTSIDE RECORDS SUMMARY | 2022-01-08 05:29 | XMS_ITS | Encounter Summary ---
:2002 Author Organization [facility] Address [address] [place] [address] Care Team Providers Name Role Phone Link, Shanda DUPREE Primary Care Provider Reason for Visit Reason Comments Psychotherapy Follow-up Encounter Details Date Type Department Care Team Description 04/02/2020 Office Visit [facility] Misael Catherine Adjustment disorder [facility] Pediatric [address] with mixed anxiety Primary Care - [place] [address] and depressed mood [place] (Primary Dx) [address] [facility] [place], [place] [address] Social History Tobacco Use Types Packs/Day Years [...] do you attend rastafarian or Never 2020 bahai services? Do you belong to any clubs [...] Office Visit Dermatology Kerry Clark MD 111 [facility], [facility] Level 3 [place], [place] [address] (Wo rk) documented as of this encounter Visit Diagnoses Diagnosis Adjustment disorder with mixed anxiety a nd depressed mood - Primary documented in this encounter Care Teams Clerk Entry Level Relationship Specialty Start Date End Date Shanda Gomes MD PCP - General 04/30/19 1 [facility] Level [address] [place] [address] documented as of this encounter
--- OUTSIDE RECORDS SUMMARY | 2022-01-08 05:29 | XMS_ITS | Encounter Summary ---
:2002 Author Organization [facility] Address [address] [place] [address] Care Team Providers Name Role Phone Shanda Gomes MD Primary Care Provider Reason for Visit Reason Onset Date Comments Anxiety 02/12/2020 Encounter Details Date Type Department Care Team Description 02/12/2020 Telephone [facility] LinkZeb MD Anxiety Pediatric Primary Care - 1 [facility] Level 3 [address] [place] [address] [place], [place] [phone] Social History Tobacco Use Types Packs/Day Years [...] do you attend denominational or Never 2020 mandaeism services? Do you [...] place to sleep or slept in a mcfp (including now)? Sex Assigned at Date Recorded Female 12/16/2020 9:36 EDT documented as of this encounter Miscellaneous Notes Telephone Encounter - Dixie Knott RN - 02/14/2020 1408 EDT 3 unsuccessful attempts over course of few days to get in touch with pt. Letter sent and encounter closed elephone Encounter - Jinny Russell - 02/12/2020 1459 EDT Reason for Call: anxiety Summary/Symptoms: anxiety Onset and Duration? Couple months Appointment Offered? No Jinny Russell 02/12/2020 15:00 documented in this encounter Plan of Treatment Upcoming Encounters Date Type Specialty Care Team Description 03/15/2022 Office Visit Dermatology Kerry Clark MD 111 [facility], [facility], [facility] 3 [place], [place] [phone] (Wo rk) documented as of this encounter Visit Diagnoses Not on filedocumented in this encounter Care Teams Faculty Head Relationship Specialty Start Date End Date Shanda Gomes MD PCP - General 04/30/[address] [facility] Level [address] [place] [address] documented as of this encounter
--- OUTSIDE RECORDS SUMMARY | 2022-01-08 05:29 | XMS_ITS | Encounter Summary ---
:2002 Author Organization [facility] Address [address] [place] [address] Care Team Providers Name Role Phone Shanda Gomes MD Primary Care Provider Reason for Visit Reason Onset Date Comments Medication Questions 09/10/2019 Encounter Details Date Type Department Care Team Description 09/10/2019 Telephone [facility] Shanda Gomes M D Medication Questions [facility] Pediatric [address] [place] [address] [address] [place] [phone] (Wo rk) Social History Tobacco Use Types [...] or relatives? How often do you attend anabaptism or Never 2020 worship services? Do you belong to any clubs or No 12/16/2020 organizations such as anabaptism groups, unions, fraternal or athletic groups, or [...] place to sleep or slept in a long term (including now)? Sex Assigned at Date Recorded Female 12/16/2020 9:36 EDT documented as of this encounter Miscellaneous Notes Telephone Encounter - Palak Trujillo - 09/10/2019 1626 EST Pt is calling to schedule an apt to talk with Dr. Gomes about medications for back acne. Scheduled with Dr. Gomes for 09.12.19. documented in this encounter Plan of Treatment Upcoming Encounters Date Type Specialty Care Team Description 03/15/2022 Office Visit Dermatology Kerry Clark MD [address] [place] [address] Level [address] [place], [place] [phone] (Wo rk) documented as of this encounter Visit Diagnoses Not on filedocumented in this encounter Care Teams Speech/Language Therapist Relationship Specialty Start Date End Date Shanda Gomes MD PCP - General 04/30/19 1 [facility] Level [address] [place] [address] documented as of this encounter
--- OUTSIDE RECORDS SUMMARY | 2022-01-08 05:29 | XMS_ITS | Encounter Summary ---
:2002 Author Organization [facility] Address [address] [place] [address] Care Team Providers Name Role Phone Link, Shanda DUPREE Primary Care Provider Reason for Visit Reason Comments Telemedicine Video Visit Encounter Details Date Type Department Care Team Description 04/22/2020 Telemedicine [facility] Laura Catherine Adjustment disorder Medical Psychology - 111 [facility] [place] [address] and depressed mood 111 [facility] (Primary Dx) [place] [address] [phone] Social History Tobacco Use Types Packs/Day Years [...] or relatives? How often do you attend orthodoxy or Never 2020 sikhism services? Do you belong to any clubs or No 12/16/2020 organizations such as orthodoxy groups, unions, fraternal or athletic groups, or [...] Office Visit Dermatology Kerry Clark MD 111 [facility] Level [address] [place] [address] (Wo rk) documented as of this encounter Visit Diagnoses Diagnosis Adjustment disorder with mixed anxiety a nd depressed mood - Primary documented in this encounter Care Teams Bariatric Program Coordinator Relationship Specialty Start Date End Date Shanda Gomes MD PCP - General 04/30/19 1 [facility] Level [address] [place] [address] documented as of this encounter
--- OUTSIDE RECORDS SUMMARY | 2022-01-08 05:29 | XMS_ITS | Encounter Summary ---
:2002 Author Organization [facility] Address [address] [place] [address] Care Team Providers Name Role Phone Link, Shanda DUPREE Primary Care Provider Reason for Visit Reason Comments New Patient Visit Pt presents today for new pa tient visit. Mom accompanies pt and brought some medical records with her. Mom's name is Samia. Encounter Details Date Type Department Care Team Description 04/30/2019 Office Visit [facility], Need for vacc ination (Primary Dx); [facility] Pediatric MYRA Colin Acne vulgaris; Primary Care - [address] [place] [address] [address] [place], [place] [address] [place] [address] [phone] Social History Tobacco Use Types Packs/Day Years Used Date Never Smoker Smokeless Tobacco: Never Used Alcohol Habits Answer Date Recorded How often [...] or relatives? How often do you attend faith or Never 2020 jew services? Do you belong to any clubs or No 12/16/2020 organizations such as faith groups, unions, fraternal or athletic groups, or [...] a [place] [facility] (including now)? Sex Assigned at Date Recorded Female 12/16/2020 9:36 EDT documented as of this encounter Last Filed Vital Signs Vital Sign Reading Time Taken Comments Blood Pressure 118/60 04/30/2019 151 EDT Pulse - - Temperature - - Respiratory Rate - - Oxygen Saturation - - Inhaled Oxygen Concentration - - Weight 66 kg (145 lb 8 oz) 04/30/2019 151 EDT Height 167.9 cm (5' 6.1) 04/30/2019 151 EDT Body Mass Index 23.41 04/30/2019 151 EDT Body Mass Index Percentile 74.92 % 04/30/2019 151 EDT Growth Chart: [facility] (Girls, 2-20 Years) documented in this encounter Ordered Prescriptions Prescription Sig Dispensed Refills Start Date End Date Benzoyl Peroxide 10 % Use in shower on 1 Bottle 2 04/30/20 19 12/17/2020 cleanserIndications: Acne back twice weekly vulgaris documented in this encounter Progress Notes Shanda Gomes MD - 04/30/2019 151 EDT Thanks Dixie! WE introduced Jovani to Tim when there were here, but I'm not sure what happened to follow up. Heather Dixie Rojas - 04/30/2019 1515 EDT Subjective: Patient ID: Crystal Broderick is an 19 y.o. female. Chief Complaint Patient presents with ??? New Patient Visit Pt presents today for new patient visit. Mom accompanies pt and brought some medical records with her. Mom's name is Samia. YAMILA Rojas is here with her mother to establish care in our practice. Brother sees Dr. Gomes. Crystal would like to see her as well. She has been generally healthy. Crystal moved with mother and brother from [place]. Crystal has been adjusting well to life in [place]. Grade 12 at [employer] - will do 5th year due to credit transfer from [employer] - primarily will take classes at [employer] next year. Interested in studying neuroscience. Has boyfriend, sexually active. 1 male partner. On OCP for contraception. Uses condoms 50% of time. Seen recently by PP for contraception and STI testing. Some stress at home with brother who has been struggling. He saw Dr. Lira in past. Crystal would like to talk to therapist about stress- graciela in regards to brother. Wondering if family therapy could be helpful. Mother agrees with this. Disease Management: N/A There is no problem list on file for this patient. No past medical history on file. No current outpatient medications on file prior to visit. No current facility-administered medications on file prior to visit. No Known Allergies Social Social History Tobacco Use ??? Smoking status: Never Smoker ??? Smokeless tobacco: Never Used Substance Use Topics ??? Alcohol use: Not on file ??? Drug use: Not on file Review of Systems - See HPI Objective: BP 118/60 Ht 167.9 cm (66.1) Wt 66 kg (145 lb 8 oz) LMP 04/21/2019 (Exact Date) BMI 23.41 kg/m?? Blood pressure percentiles are 75 % systolic and 22 % diastolic based on the February 2017 AAP Clinical Practice Guideline. Physical Exam Constitutional: She appears well-developed and well-nourished. Cardiovascular: Normal rate and regular rhythm. Pulmonary/Chest: Effort normal and breath sounds normal. Labs: N/A Assessment and Plan: Crystal was seen today for new patient visit. Diagnoses and all orders for this visit: 19 year old healthy female establishing care in our office. Updated family, medical and social history. Oriented to clinic. Follow up with PCP in next several months for HS. See below Need for vaccination - Vaccines records somewhat limited, will check in with school and update records. - HUMAN PAPILLOMAVIRUS (HPV9) VACCINE, 9-VALENT (GARDASIL-9) IM - INFLUENZA VACCINE QUAD (FLULAVAL/FLUARIX/FLUZONE) PF 0.5 ML IM (6 MOS+) Acne vulgaris - Benzoyl Peroxide 10 % cleanser; Use in shower on back twice weekly Primarily on back - - Benzoyl peroxide 10% shower wash for back, reviewed potential for bleaching of clothes. -Recently start OCP which should help as well Discussed skin care (gentle cleansing Q AM, PM, avoid harsh soaps, moisturizers). Reviewed s/e of creams and timing for improvement. SE BP - bleaching BP, retinoids - drying and irritation of skin Family circumstance - Stress and possible mental health concerns in brother. Family will likely benefit from family therapy. BrotherJovani has seen Dr. Lira in past. I will connect with him to see about next steps for family therapy. Other orders Manager Office was not used. I spent a total of 45 minutes in face to face time with this patient and 45 minutes of that time wasspent in counseling and coordination of care as described in the progress note. documented in this encounter Plan of Treatment Upcoming Encounters Date Type Specialty Care Team Description 03/15/2022 Office Visit Dermatology Kerry Clark MD [address] [place] [address] [address] [place] [phone] (Wo rk) documented as of this encounter Visit Diagnoses Diagnosis Need for vaccination - Primary Need for prophylactic vaccination and in oculation against unspecified single disease Acne vulgaris Other acne Family circumstance Unspecified family circumstance documented in this encounter Orders Immunization/Injection Count Last Ordered Date First O rdered Date HUMAN PAPILLOMAVIRUS (HPV9) VACCINE, 1 04/30/2019 9-VALENT (GARDASIL-9) IM INFLUENZA VACCINE QUAD 1 04/30/2019 (FLULAVAL/FLUARIX/FLUZONE) PF 0.5 ML IM (6 MOS+) documented in this encounter Care Teams Skin Lifter Bacon Relationship Specialty Start Date End Date Shanda Gomes MD PCP - General 04/30/19 1 [facility] Level [address] [place] [phone] documented as of this encounter
--- OUTSIDE RECORDS SUMMARY | 2022-01-08 05:29 | XMS_ITS | Encounter Summary ---
:2002 Author Organization [facility] Address [address] [place] [address] Care Team Providers Name Role Phone Shanda Gomes MD Primary Care Provider Reason for Visit Reason Comments Follow-up Here to discuss medication f or back acne byself. Inner right thigh bump that is draining and painful - keeps it clean with hydrogen proxide and covered with clean dressing Encounter Details Date Type Department Care Team Description 09/12/2019 Office Visit [facility] Children's [facility] Link, MD Stacey Dalton (Primary Dx) Pediatric Primary Care [address] [place] [address] [address] [place], [place] [address] [place] [address] [phone] (Wo rk) Social History Tobacco Use Types [...] or relatives? How often do you attend religious or Never 2020 pentecostalism services? Do you belong to any clubs or No 12/16/2020 organizations such as religious groups, unions, fraternal or athletic groups, or [...] place to sleep or slept in a snf (including now)? Sex Assigned at Date Recorded Female 12/16/2020 9:36 EDT documented as of this encounter Last Filed Vital Signs Vital Sign Reading Time Taken Comments Blood Pressure - - Pulse - - Temperature 37 ??C (98.6 ??F) 09/12/2019 1055 EST Respiratory Rate - - Oxygen Saturation - - Inhaled Oxygen Concentration - - Weight 69.9 kg (154 lb) 09/12/2019 1055 EST Height - - Body Mass Index - - documented in this encounter Patient Instructions Patient InstructionsShanda Gomes MD - 09/12/2019 11:00 EST For the bump on your thigh: 1)Start Bactrim, take one tab by mouth twice daily for 10 days. Take with food and water. 2)Apply the mupirocin twice a day and wash hands well. For acne: 1)Apply the clindagel every morning. 2)Apply the t-retinoin every thing. This can bleach out clothing. Shanda Gomes MD 09/12/2019 11:20 documented in this encounter Ordered Prescriptions Prescription Sig Dispensed Refills Start Date End Date tretinoin microspheres Apply to affect 1 Tube 5 09/12/19 20 12/17/2020 (RETIN-A MICRO) 0.04 % area(s) as directed. gel clindamycin (CLINDAGEL) 1 Apply every morning 1 Tube 5 0 09/12/2019 12/17/2020 % gel sulfamethoxazole-trimetho Take 1 Tab by mouth 20 Tab 0 0 09/12/2019 12/17/2020 prim every 12 hours. (BACTRIM/CO-TRIMOXAZOLE DS) 800-160 mg per tablet mupirocin (BACTROBAN) 2 % Apply twice daily 1 Tube 1 12/17/2020 ointment documented in this encounter Progress Notes Shanda Gomes MD - 09/12/2019 1100 EST nd Subjective: Patient ID: Crystal Broderick is an 19 y.o. female. Chief Complaint Patient presents with ??? Follow-up Here to discuss medication for back acne byself. Inner right thigh bump that is draining and painful - keeps it clean with hydrogen proxide and covered with clean dressing HPI 1)Has had a boil on inner thigh, tried with soaks, and did drain, but link wire fabric machine tender. 2)Acne on back, BP wash not helping, has been to see a derm in the past, but not sure what she used that might have worked. Does seem to clear in the sun and salt water. Disease Management: N/A Patient Active Problem List Diagnosis ??? Acne vulgaris No past medical history on file. Current Outpatient Medications on File Prior to Visit Medication Sig Dispense Refill ??? Benzoyl Peroxide 10 % cleanser Use in shower on back twice weekly (Patient not taking: Reported on 09/12/2019) 1 Bottle 2 No current facility-administered medications on file prior to visit. No Known Allergies Social Social History Tobacco Use ??? Smoking status: Never Smoker ??? Smokeless tobacco: Never Used Substance Use Topics ??? Alcohol use: Not Currently ??? Drug use: Not Currently Review of Systems - See HPI Objective: Temp 37 ??C (98.6 ??F) Wt 69.9 kg (154 lb) No blood pressure reading on file for this encounter. Physical Exam Constitutional: She appears well-developed and well-nourished. Mouth/Throat: Mucous membranes are moist. Cardiovascular: Normal rate, regular rhythm and normal heart sounds. Skin: Right inner thigh with red-purple draining lesion. Back with scaring, hyperpigmented lesions across entire back. Labs: N/A Assessment and Plan: Crystal was seen today for follow-up. Diagnoses and all orders for this visit: Boil - BACTERIAL CULTURE/SMEAR Other orders - mupirocin (BACTROBAN) 2 % ointment; Apply twice daily - sulfamethoxazole-trimethoprim (BACTRIM/CO-TRIMOXAZOLE DS) 800-160 mg per tablet; Take 1 Tab by mouth every 12 hours. - clindamycin (CLINDAGEL) 1 % gel; Apply every morning - tretinoin microspheres (RETIN-A MICRO) 0.04 % gel; Apply to affect area(s) as directed. Writing Center Director was not used. To notify if is MRSA. Shanda Gomes MD 09/12/2019 11:32 documented in this encounter Plan of Treatment Upcoming Encounters Date Type Specialty Care Team Description 03/15/2022 Office Visit Dermatology Kerry Clark MD 111 [facility], [address] [place], [place] [phone] (Wo rk) documented as of this encounter Procedures Procedure Name Priority Date/Time Associated Diagnosis Comme nts BACTERIAL Routine 09/12/2019 11:38 Boil Results for this CULTURE/SMEAR EST procedure are in the results section. documented in this encounter Results (ABNORMAL) BACTERIAL CULTURE/SMEAR (09/12/2019 11:38 EST) Organism ID Few Staphylococcus [facility] aureus (A)Comment: LABORATORY SERVICES Susceptible to nafcillin, cephalosporins and other beta lactam antibiotics (mecA gene product absent). Smear No Neutrophils Seen [facility] Smear No bacteria seen [facility] Specimen Swab - Leg, Right Organism Antibiotic Method Susceptibility Staphylococcus aureus Cefazolin VITEK SUSCEPTIBILITY Deduc ed Susceptible Staphylococcus aureus Clindamycin VITEK SUSCEPTIBILITY 0.25 ug/mL: Susceptible Staphylococcus aureus Erythromycin VITEK SUSCEPTIBILITY <=0.2 5 ug/mL: Susceptible Staphylococcus aureus Oxacillin VITEK SUSCEPTIBILITY 0.5 u g/mL: Susceptible Staphylococcus aureus Trimethoprim-Sulfame VITEK SUSCEPTIBILITY 160 ug/mL: Resistant thoxazole Staphylococcus aureus Tetracycline VITEK SUSCEPTIBILITY <=1 u g/mL: Susceptible Staphylococcus aureus Vancomycin VITEK SUSCEPTIBILITY 1 ug/ mL: Susceptible Performing Organization Address City/State/ZIP Code Phon e Number [facility] [address] [place] [address] SERVICES documented in this encounter Visit Diagnoses Diagnosis Boil - Primary Carbuncle and furuncle of unspecified si te documented in this encounter Care Teams Chief Privacy Officer Relationship Specialty Start Date End Date Shanda Gomes MD PCP - General 04/30/19 1 [facility] [address] [place] [address] documented as of this encounter
--- OUTSIDE RECORDS SUMMARY | 2022-01-08 05:29 | XMS_ITS | Encounter Summary ---
:2002 Author Organization [facility] Address [address] [place] [address] Care Team Providers Name Role Phone Shanda Gomes MD Primary Care Provider Reason for Visit Reason Comments Well Child here with mom for HS. Encounter Details Date Type Department Care Team Description 07/01/2019 Health Supervision [facility] Children's Shanda Gomes MD Encounter for dietary counseling and chris veillance; Hospital Pediatric [address] [place] [address] ise counseling; Primary Care - [place] Screening for depression [facility] Level [address] [place] [address] [phone] Social History Tobacco Use Types Packs/Day Years [...] or relatives? How often do you attend restorationist or Never 2020 protestant services? Do you belong to any clubs or No 12/16/2020 organizations such as restorationist groups, unions, fraternal or athletic groups, or [...] place to sleep or slept in a detention (including now)? Sex Assigned at Date Recorded Female 12/16/2020 9:36 EDT documented as of this encounter Last Filed Vital Signs Vital Sign Reading Time Taken Comments Blood Pressure 108/58 07/01/2019 1548 EST Pulse - - Temperature - - Respiratory Rate - - Oxygen Saturation - - Inhaled Oxygen Concentration - - Weight 68.3 kg (150 lb 8 oz) 07/01/2019 1548 EST Height 167.3 cm (5' 5.87) 07/01/2019 1548 EST Body Mass Index 24.39 07/01/2019 1548 EST Body Mass Index Percentile 80.60 % 07/01/2019 1548 EST Growth Chart: CDC (Girls, 2-20 Years) documented in this encounter Progress Notes Shanda Gomes MD - 07/01/2019 1515 EST ADOLESCENT HEALTH VISIT 15-18 YEARS Crystal Broderick is a 19 y.o. female who is brought in by her mother for this well child visit. Vitals: There were no vitals taken for this visit. No height and weight on file for this encounter. No height on file for this encounter. No weight on file for this encounter. No blood pressure reading on file for this encounter. Active Medications: No outpatient medications have been marked as taking for the 07/01/19 encounter (Health Supervision)with Shanda Gomes MD. Active Problems: There are no active problems to display for this patient. Immunization History: Immunization History Administered Date(s) Administered ??? Historical HPV Vaccine, Unspecified 10/11/2015 ??? Historical Hepatitis B Vaccine, Unspecified 03/31/2014, 06/09/2014, 01/05/2015 ??? Historical Meningococcal ACWY Vaccine, Unspecified 06/09/2014 ??? Historical Meningococcal MCV4 Conjugate Vaccine, Unspecified 03/31/2014 ??? Human Papillomavirus (HPV9) 9-Valent Vaccine (GARDASIL-9) IM 04/30/2019 ??? Influenza Vaccine Quad (FLULAVAL/FLUARIX/FLUZONE) PF 0.5 ml IM (6 mos+) 04/30/2019 ??? MMR Vaccine SQ 03/31/2015 ??? MMR and Varicella Combined Vaccine (PROQUAD) SQ 07/28/2013 ??? Poliovirus Vaccine IPV IM OR SQ 07/28/2013 ? ? Tdap Vaccine =>7YO IM 07/28/2013, 07/31/2017 Allergies: No Known Allergies Interval History: Concerns addressed: Would like to pursue lack of periods, started COCP's, starts with A, likely October? And thinks periods are heavier, cramping not worse, but periods heavier. Screened for STI's at when started COCP. 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 Education: School: [employer] Grade: 12 Problems at school: No. Activities: Screen time: Minmal hrs/day Exercise: Basketball Sleep: Normal sleep patterns. Diet/Nutrition: Milk, Meat, Variety and NL body image. Dental: Brushes 2x/day and Dentist: yes. Sexuality: Sexually active: Yes, discussed contraception and safe sex. Behavioral Health Screen: Tobacco use: Social History Tobacco Use Smoking Status Never Smoker Smokeless Tobacco Never Used CRAFFT Alcohol: Marijuana: Other: Car: Total Score: Interpretation: PHQ-9 Total Score: Interpretation: If Evaluating for Depression Severity: Intervention: no intervention needed. Repeat in 1 year. Safety: Use helmet (PHAT), gun and interpersonal violence. Social Determinants of Health Screening: Negative Respondent: Hunger Vital Sign Result: Housing: Housing Quality: Utilities: Transportation: Physical Hurt: Insult/Talk Down: Threaten: Scream/Curse: Intervention(s): Caregiver Depression Screen Respondent: Total Score: Interpretation: Intervention: no intervention needed All systems reviewed and are normal. Family History: Plan: No interval change and No family history of sudden Family History Problem Relation Age of Onset ??? Diabetes Maternal Grandmother ??? Arthritis Paternal Grandmother ??? Cancer Other Maternal side- breast ??? Early Neg Hx Past Medical History: Plan: No interval change, No fainting/syncope, No concussion and No loss of consciousness No past medical history on file. Physical Exam: Plan: Growth parameters are noted and are appropriate for age. General: Alert and No apparent distress Growth: [...] acne Neuro: Normal tone, reflexes and strength Kennel Worker offered, patient declined. Assessment & Plan: Plan: Crystal was seen today for well child. Diagnoses and all orders for this visit: Encounter for dietary counseling and surveillance Exercise counseling Screening for depression Normal growth and pubertal development Immunizations reviewed and administered as needed Fit for competitive sports No limitations Case Management (Medicaid only - yearly): N/A. School Traffic Supervisor was not used. The following anticipatory guidance topics were reviewed with the family: Nutrition: Breakfast, Fad diets and Exercise. Health: Smoking, Alcohol and Self-exam. Safety: Seatbelt/Driving, Helmet and Gun. Sexuality: STDs and Safe sex. Anticipatory guidance educational materials given to the family: Yes Has 11 packs of COCP's at home. Discussed how to do consecutive packs to skip periods. She can decide when to have a period. Continue condoms for STI protection. HIV test at some point. Discussed IUD and will consider. Shanda Gomes MD 07/01/2019 16:23 documented in this encounter Plan of Treatment Upcoming Encounters Date Type Specialty Care Team Description 03/15/2022 Office Visit Dermatology Kerry Clark MD 111 [facility], [facility], [facility] 3 [place], [place] [address] (Wo rk) documented as of this encounter Visit Diagnoses Diagnosis Encounter for dietary counseling and chris veillance Dietary surveillance and counseling Exercise counseling Screening for depression documented in this encounter Care Teams Filling Machine Set Up Mechanic Relationship Specialty Start Date End Date Shanda Gomes MD PCP - General 04/30/19 1 [facility] 3 [place] [phone] documented as of this encounter
--- OUTSIDE RECORDS SUMMARY | 2022-01-08 05:29 | XMS_ITS | Encounter Summary ---
:2002 Author Organization [facility] Address [address] [place] [address] Care Team Providers Name Role Phone Link, Shanda DUPREE Primary Care Provider Reason for Visit Reason Comments Psychotherapy Follow-up Encounter Details Date Type Department Care Team Description 05/27/2020 Telemedicine [facility] Laura Catherine Adjustment disorder Medical Psychology - 111 [facility] [place] [address] and depressed mood 111 [facility] (Primary Dx) [place] [address] [phone] Social History Tobacco Use Types Packs/Day Years [...] do you attend orthodox or Never 2020 jew services? Do you [...] this encounter Progress Notes Ann-Marie Torres - 05/27/2020 1500 EST Due to computer system disruption, additional clinical information for this visit will be scanned into the chart. For patients, please refer to guidance in [employer] on how to locate information. Generally this information will appear as a scanned documents saved in My Documents activity. documented in this encounter Plan of Treatment Upcoming Encounters Date Type Specialty Care Team Description 03/15/2022 Office Visit Dermatology Kerry Clark MD 111 [facility], [facility], Level [address] [place], [place] [phone] (Wo rk) documented as of this encounter Visit Diagnoses Diagnosis Adjustment disorder with mixed anxiety a nd depressed mood - Primary documented in this encounter Care Teams Consulting Psychologist Relationship Specialty Start Date End Date Shanda Gomes MD PCP - General 04/30/19 1 [facility] Level [address] [place] [address] documented as of this encounter
--- OUTSIDE RECORDS SUMMARY | 2022-01-08 05:29 | XMS_ITS | Encounter Summary ---
:2000 Author Organization [facility] Address [address] [place] [address] Care Team Providers Name Role Phone Link, Shanda DUPREE Primary Care Provider Reason for Visit Reason Onset Date Comments Follow-up 06/18/2019 Encounter Details Date Type Department Care Team Description 06/18/2019 Telephone [facility] Saul Barroso RN Follow-up Pediatric Primary Care - [address] [place], [place] [address] [place] [id number] Social History Tobacco Use Types Packs/Day Years [...] or relatives? How often do you attend adventism or Never 2020 zoroastrianism services? Do you belong to any clubs or No 12/16/2020 organizations such as adventism groups, unions, fraternal or athletic groups, or [...] slept in a nursing home (including now)? Sex Assigned at Date Recorded Female 12/16/2020 9:36 EDT documented as of this encounter Miscellaneous Notes Telephone Encounter - Farzaneh Cuevas MD - 06/18/2019 1151 EST Noted. Agree with plan. Farzaneh Cuevas MD Telephone Encounter - Saul Barroso RN - 06/18/2019 1122 EST Sick note faxed to number below per request elephone Encounter - Bianca Ramírez - 06/18/2019 1104 EST Mom calling back with fax number for the letter. [phone] PAUL Gracia (work fax number). elephone Encounter - Dixie Houser RN - 06/18/2019 1010 EST Spoke with Mom- Mom reports that going to the ED was a bit of dramatic response from pt Pt is eating fine, denies fever. To continue to push fluids Improving today and reports comfort with home care Mom states that pt needed to slow down and is doing so today. Mom requests letter for employer stating why pt is out of work- due to illness etc Routing to POD for review Prompted to call office with worsening symptoms or no improvement. questions/concerns Mom advised that she would be contacted and Mom to advise where letter should be sent or if Mom to worm picker letter. elephone Encounter - Saul Barroso RN - 06/18/2019 0902 EST ED COURSE A medical screening exam was performed. ?? Crystal Broderick is a 19 y.o. female who presents to the ED with sore throat for the past twodays. ?? On exam, patient is generally well-appearing and in NAD. There is mild erythema to the posterior oropharynx without exudate or signs of peritonsillar abscess. No cervical lymphadenopathy. Cerumen to the bilateral ears. ?? Discussed the plan going forward with the patient. I explained that her presentation is most consistent with a viral syndrome and does not require additional work-up/treatment tonight in the ED. I alsoadvised her to follow-up with her PCP as scheduled. Patient expressed understanding and was comfortable with discharge. ?? Patient discharged to home/self care. Instructed to take Tylenol/Advil for pain. Prior to discharge usual and customary precautions were reviewed with the patient and/or family including follow-up instructions and reasons to return to the Emergency Department if condition worsens, does not improve as expected, or other new concerns arise. ?? Final diagnoses: Acute viral pharyngitis documented in this encounter Plan of Treatment Upcoming Encounters Date Type Specialty Care Team Description 03/15/2022 Office Visit Dermatology Kerry Clark MD [address] [facility], [facility], [facility] [address] [place], [place] [address] (Wo rk) documented as of this encounter Visit Diagnoses Not on filedocumented in this encounter Care Teams Apple Peeler Operator Relationship Specialty Start Date End Date Shanda Gomes MD PCP - General 04/30/19 1 [facility] Level [address] [place] [address] documented as of this encounter
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
--- OUTSIDE RECORDS SUMMARY | 2022-01-08 05:29 | XMS_ITS | Encounter Summary ---
:2000 Author Organization [facility] Address [address] [place] [address] Care Team Providers Name Role Phone Shanda Gomes MD Primary Care Provider Reason for Visit Reason Onset Date Comments Other 02/18/2020 Mental Health issues Encounter Details Date Type Department Care Team Description 02/18/2020 Telephone [facility] Shanda Gomes M D Other ([facility] Pediatric [address] [place] [address] issue s) Primary Care - [facility] Level [address] [place] [phone] (Wo rk) Social History Tobacco Use Types [...] do you attend voodoo or Never 2020 shinto services? Do you belong to any clubs [...] this encounter Miscellaneous Notes Telephone Encounter - Saul Barroso RN - 02/23/2020 1602 EDT PC to Crystal: tele video appt made for [address] Eliseo Rojas verbalized understanding/agreement with plan elephone Encounter - Shanda Gomes MD - 02/23/2020 1531 EDT Hi, Hopefully we can get her in for a zoom in the next week? If not okay to see another provider if she's okay with that. But, within the next week might work, or we could arrange for zoom for afternoon Resident clinic in [place] (I'm precepting, but could just take the call, depending on who is in clinic). Shanda Gomes MD 02/23/2020 15:32 elephone Encounter - Ayah Vale RN - 02/18/2020 1238 EDT P/c to Crystal, she wants to see about some mental health issues she is having. She feels overly emotionally about a lot of t hings, anxious, cries for no reason at all, she is ihtting herself in the head. Her hands shake when she gets anxious.She did have SI beginning of year then she talked with a friend and thought it got better. Now does not feel that way. She is frequently mad at herself. This has been happening past 3 months, wort over time. A lot of stressful family issues. She would like to see Dr. Gomes. She is on BCP, since last Mar. Advised to try journal, exercise, brisk walking. Gave her phone number for [facility]. Gave encouragement. Will route to Dr. Gomes. elephone Encounter - Palak Trujillo - 02/18/2020 1212 EDT Reason for Call: Other (Mental Health issues) Summary/Symptoms: pt called last week regarding anxiety, we tried to call back 3 times with no success. Patient states that she lost her phone last week. Onset and Duration? Couple months now Appointment Offered? No Palak Trujillo 02/18/2020 12:13 documented in this encounter Plan of Treatment Upcoming Encounters Date Type Specialty Care Team Description 03/15/2022 Office Visit Dermatology Kerry Clark MD 111 [facility], [facility], Level [address] [place], [place] [address] (Wo rk) documented as of this encounter Visit Diagnoses Not on filedocumented in this encounter Care Teams Sales Agent Protective Service Relationship Specialty Start Date End Date Shanda Gomes MD PCP - General 04/30/19 1 [facility] Level [address] [place] [address] documented as of this encounter
--- OUTSIDE RECORDS SUMMARY | 2022-01-08 05:29 | XMS_ITS | Encounter Summary ---
:2000 Author Organization [facility] Address [address] [place] [address] Care Team Providers Name Role Phone Link, Shanda DUPREE Primary Care Provider Reason for Visit Reason Comments Pharyngitis C/o sore throat and feeling like my throat is closed off and worsening over last 2 days. + JEWELL. No S OB. No fever. Speaks full sentences. Hurts throat to cough. Took aspiri n and drinking hot water with lemon and honey w/ little effect. Encounter Details Date Type Department Care Team Description 06/17/2019 - Emergency [facility] Lopez Hurtado, Acute viral 06/18/2019 Emergency Department PA-C pharyngitis (Primary - Main [place] [address] [facility] Dx) [address] [phone] (Wo rk) Social History Tobacco Use Types [...] or relatives? How often do you attend catholic or Never 2020 catholic services? Do you belong to any clubs or No 12/16/2020 organizations such as catholic groups, unions, fraternal or athletic groups, [...] place to sleep or slept in a halfway (including now)? Sex Assigned at Date Recorded Female 12/16/2020 9:36 EDT documented as of this encounter Last Filed Vital Signs Vital Sign Reading Time Taken Comments Blood Pressure 134/76 06/17/2019 2347 EST Pulse 89 06/17/2019 2347 EST Temperature 37.2 ??C (98.9 ??F) 06/18/2019 0112 EST Respiratory Rate 18 06/17/2019 2347 EST Oxygen Saturation 100% 06/17/2019 2347 EST Inhaled Oxygen Concentration - - Weight - - Height - - Body Mass Index - - documented in this encounter Discharge Instructions Lopez Limon PA - 06/18/2019 Take Tylenol and Advil for pain. Continue to drink lots of liquids. Return here if you have any worsening symptoms like fevers chills photophobia neck pain or if you are just not feeling well. AttachmentsThe following attachments cannot be sent through Care Everywhere.Sore Throat: Teen (Turkmen)documented in this encounter Medications at Time of Discharge Medication Sig Dispensed Refills Start Date End Date Benzoyl Peroxide 10 % Use in shower on 1 Bottle 2 04/30/20 19 12/17/2020 cleanserIndications: Acne back twice weekly vulgaris documented as of this encounter Discharge Disposition Disposition Code Departure Means Destination Home or Self Correction documented in this encounter ED Notes Kamilah Garnett RN - 06/18/2019 0113 EST Discharge instructions explained to patient. Pt verbalized understanding of discharge instructions. Pt ambulated out of department with steady gait. Lopez Nieves PA - 06/18/2019 0013 EST DOS: 06/17/2019 HPI I, Carmela Limon, am scribing for Lopez Hurtado PA while he/she is personally performing the service. Carmela Limon 06/18/2019 0:14 Crystal Broderick is a 19 y.o. female with no significant PMHx who presents to the ED with sore throat for the past two days. Patient describes feeling as though her throat is closing off. She endorses associated cough and headache. She denies any fever, chills, SOB, chest pain, difficulty swallowing, abdominal pain, nausea, vomiting, or diarrhea. Patient additionally denies any history of asthma or other pulmonary conditions. Patient provides she has been taking Aspirin and drinking hot water with lemon and honey without relief. She states she does have an established PCP, which she has not met yet, but has an appointment with on 07/01. Review of Systems Review of Systems Constitutional: Negative for chills and fever. HENT: Positive for sore throat. Negative for trouble swallowing. Eyes: Negative for photophobia. Respiratory: Positive for cough. Negative for shortness of breath. Cardiovascular: Negative for chest pain. Gastrointestinal: Negative for abdominal pain, diarrhea, nausea and vomiting. Genitourinary: Negative for dysuria. Musculoskeletal: Negative for neck pain. Skin: Negative for wound. Allergic/Immunologic: Negative for immunocompromised state. Neurological: Positive for headaches. The patient's past medical, family and social history was reviewed and updated as needed. No Known Allergies Vital Signs Temp: 36.2 ??C (97.2 ??F) Temp src: Temporal Pulse: 89 Resp: 18 SpO2: 100 % BP: 134/76 BP Device: BP Machine BP Patient Position: Sitting BP Cuff Location: Right arm O2 Device: None (Room air) Physical Exam Constitutional: She is oriented to person, place, and time. She appears well- developed and well-nourished. HENT: Head: Normocephalic and atraumatic. There is mild erythema to the posterior oropharynx without exudate or signs of peritonsillar abscess. Cerumen to the bilateral ears. Eyes: Conjunctivae and EOM are normal. Neck: Normal range of motion. Neck supple. Cardiovascular: Normal rate, regular rhythm, normal heart sounds and intact distal pulses. No murmur heard. Pulmonary/Chest: Effort normal and breath sounds normal. No respiratory distress. She has no wheezes. Musculoskeletal: Normal range of motion. She exhibits no edema. Lymphadenopathy: She has no cervical adenopathy. Neurological: She is alert and oriented to person, place, and time. Skin: Skin is warm and dry. No rash noted. Psychiatric: She has a normal mood and affect. Nursing note and vitals reviewed. ED COURSE A medical screening exam was performed. Crystal Broderick is a 19 y.o. female who presents to the ED with sore throat for the past twodays. On exam, patient is generally well-appearing and in NAD. There is mild erythema to the posterior oropharynx without exudate or signs of peritonsillar abscess. No cervical lymphadenopathy. Cerumen to the bilateral ears. Discussed the plan going forward with the patient. I explained that her presentation is most consistent with a viral syndrome and does not require additional work-up/treatment tonight in the ED. I alsoadvised her to follow-up with her PCP as scheduled. Patient expressed understanding and was comfortable with discharge. Patient discharged to home/self care. Instructed to take Tylenol/Advil for pain. Prior to discharge usual and customary precautions were reviewed with the patient and/or family including follow-up instructions and reasons to return to the Emergency Department if condition worsens, does not improve as expected, or other new concerns arise. Final diagnoses: Acute viral pharyngitis DISPOSITION: Discharged The patient's pain was managed to an adequate level weighing risk vs. benefit of further medications. Upon departure from the Emergency Department, the patient's pain was 2 on a zero to ten scale. Any further pain treatment will be at the discretion of the provider following up with the patient based on their clinical assessment. Condition at departure from the Emergency Department: Good PCP: Shanda THAPA This documentation is recorded by Carmela Limon acting as Scribe under the direction and presence ofLopez Hurtado PA. Lopez Hurtado PA: I personally performed the services recorded by the scribe in my presence. I confirm the scribe's documentation has been reviewed by me to accurately and completely record my work,treatment, procedures, and medical decision making. Dr. Berger was available for supervision. 06/18/2019 0:13 No flowsheet data found. documented in this encounter Plan of Treatment Upcoming Encounters Date Type Specialty Care Team Description 03/15/2022 Office Visit Dermatology Kerry Clark MD [address] [place] [address] 3 [place], [place] [phone] (Wo rk) documented as of this encounter Visit Diagnoses Diagnosis Acute viral pharyngitis - Primary Acute pharyngitis documented in this encounter Care Teams Bail Bondsman Relationship Specialty Start Date End Date Shanda Gomes MD PCP - General 04/30/19 1 [facility] Level [address] [place] [address] documented as of this encounter
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
--- OUTSIDE RECORDS SUMMARY | 2022-01-08 05:29 | XMS_ITS | Encounter Summary ---
:2000 Author Organization [facility] Address [address] [place] [address] Care Team Providers Name Role Phone Link, Shanda DUPREE Primary Care Provider Reason for Visit Reason Onset Date Comments Results 09/16/2019 Encounter Details Date Type Department Care Team Description 09/16/2019 Telephone [facility] Pediatric Michi Early RN Results Primary Care - [address] [address] Social History Tobacco Use Types [...] or relatives? How often do you attend temple or Never 2020 samaritan services? Do you belong to any clubs or No 12/16/2020 organizations such as temple groups, unions, fraternal or athletic groups, or [...] Sig Dispensed Refills Start Date End Date cephALEXin (KEFLEX) 500 mg Take 1 Cap by mouth 21 Cap 0 09/16/2019 09/23/2019 capsule 3 times daily for 7 days. documented in this encounter Miscellaneous Notes Telephone Encounter - Jo Ann Early RN - 09/16/2019 1432 EST pc to mom reviewed Dr. Dale's instructions as noted below. Mom ok w/plan rx called in. Telephone Encounter - Renaldo Dale MD - 09/16/2019 1315 EST Culture shows a few staph aureus at right thigh bump that was draining. sensitive to Keflex and resistant to Septra. Rx Bactrim/Septra on 09/12/19 Will need a Rx change to Keflex to treat the boil. Will pend Keflex and ask nursing confirm with family pharmacy choice as well as to have Crystal discontinue the Bactrim Rx. Telephone Encounter - Jo Ann Early RN - 09/16/2019 1114 EST Results for orders placed or performed in visit on 09/12/19 BACTERIAL CULTURE/SMEAR Result Value Ref Range Organism ID Few Staphylococcus aureus (A) Smear No Neutrophils Seen Smear No bacteria seen Susceptibility Staphylococcus aureus - VITEK SUSCEPTIBILITY Cefazolin Deduced Susceptible Clindamycin 0.25 Susceptible ug/mL Erythromycin <=0.25 Susceptible ug/mL Oxacillin 0.5 Susceptible ug/mL Trimethoprim-Sulfamethoxazole 160 Resistant ug/mL Tetracycline <=1 Susceptible ug/mL Vancomycin 1 Susceptible ug/mL Pt rx'd with bactrim po and resistant , also on topical mupirocin . pc to mom - disc results above- inquired on current s/sx: Crystal is not home- she will call her to check in with s/sx and status of boil. Mom called back, spoke with Crystal- reports boil is , healing well, less redness, no fever . No drainage- will route to POD to advise. documented in this encounter Plan of Treatment Upcoming Encounters Date Type Specialty Care Team Description 03/15/2022 Office Visit Dermatology Kerry Clark MD 111 [facility], [facility], Level [address] [place], [place] [phone] (Wo rk) documented as of this encounter Visit Diagnoses Not on filedocumented in this encounter Care Teams Back Sizer Relationship Specialty Start Date End Date Shanda Gomes MD PCP - General 04/30/19 1 [facility] Level [address] [place] [address] documented as of this encounter
--- OUTSIDE RECORDS SUMMARY | 2022-01-08 05:29 | XMS_ITS | Encounter Summary ---
:2000 Author Organization [facility] Address [address] [place] [address] Care Team Providers Name Role Phone Link, Shanda DUPREE Primary Care Provider Reason for Visit Reason Comments Psychotherapy Follow-up Encounter Details Date Type Department Care Team Description 04/09/2020 Office Visit [facility]ael Catherine Adjustment disorder [facility] with mixed Primary Care - [place], [place] [address] disturbance of [place] emotions and conduct 353 [facility] (Primary Dx) [place], [place] [address] Social History Tobacco Use Types Packs/Day Years [...] or relatives? How often do you attend holiness or Never 2020 sikh services? Do you belong to any clubs or No 12/16/2020 organizations such as holiness groups, unions, fraternal or athletic groups, or [...] or slept in a penitentiary (including now)? Sex Assigned at Date Recorded Female 12/16/2020 9:36 EDT documented as of this encounter Progress Notes DoreneLaura - 04/09/2020 1400 EDT Psychotherapy Progress Note Name: Crystal Broderick : 2000 Date of Service: 04/09/2020 Referring Provider: Shanda Gomes MD Primary Care Provider: Shanda Gomes MD (General) Diagnosis Code: (F43.25) Adjustment disorder with mixed disturbance of emotions and conduct (primaryencounter diagnosis) Start Time: 14:00 End Time: 14:45 Duration of Session: 45 Minutes Session Type: 07985: Psychotherapy, 38-52 minutes with patient Problem: Crystal Broderick is a 20 y.o. female referred for psychotherapy services to address symptoms of anxiety and depression. Subjective/Session Content: I don't want to want more friends I shouldn't feel this way Beginning of session was spent planning for ongoing treatment under the supervision of Erum Mcnair PsyD as an outpatient through the hospital. Pt was open to this transition and signed necessary paperwork. Pt shared that she had two meltdowns over the previous week. First, pt described becoming upset after a conversation with her boyfriend in which he had mentioned something about his friends. This hadtriggered jealousy and sadness for pt. Pt expressed that she wants more of her own friends. Currently, she feels that all of her friends are through her boyfriend and she is an attachment rather than her own person. Pt was validated and supported. Connections between this feeling and pt's statement last week that neither of her parents see her as her own person were also drawn. In describing this incident pt also expressed an overlaying belief that she should not feel guilty or upset that her boyfriend has more friends and that she should not need friends. Pt was also supported as she described a conversation with her father that left her sad and frustrated. Her father had told her she had a bad life and pt had felt that this means he thinks she is bad. Further, pt expressed frustration that her father frequently says he feels sorry for her given thatshe has to work to provide financial support, and that he there is nothing he can do. When pt saysthat he could give money if he really felt that way, he says it would be unfair to give money to her mother. Pt said repeatedly that her father cannot understand that her life is affected by her mothers. Further, she described how nobody, including her father, had believed her mother when they had left [employer] for safety reasons. This conversation happened on her break at work and she was left in tears and so upset that she had to leave work early. Further, pt describes increased difficulty getting out of bed despite sleeping for up to 12 hours. She also finds herself taking more naps and feeling tired throughout the day. Of note, pt continued tospeak quickly and with little pause through the session. She reported that it is difficult for her to talk about these things because it brings up so many different memories and details that are hard to organize. SYMPTOMS DISCUSSED: Mood: Depressed and Anxiety Behavioral [...] or plan and a brief safety plan has been created including activities to calm down, people to call, and 911. She has agreed she would contact emergency services if she felt she could not keep herself safe. Her thoughts were future oriented and hersuicidal thoughts seem to occur in the presence of overwhelming emotions. She reports that she has an aunt who has attempted suicide multiple times in the past year. Assessment: Crystal is a 20 y.o. 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 Treatment Plan: 1. Move Crystal to be a skilled nursing outpatient supervised by Erum Mcnair 2. Work towards establishing clearer treatment goals 3. Use narrative and cognitive behavioral techniques to help Crystal process her memories and how they are related to her current feelings ME.d Travis. Pre-Doctoral Music Educator Pager #[phone] I have discussed this session and read and reviewed this note. I concur with the internal audit director's findings and treatment plan. Services provided were routine and within the competence of this psychology resident/psychiatry fellow. NICHOL PACKER, PH.D. Licensed Psychologist-Doctorate 04/13/2020 @ 16:46 documented in this encounter Plan of Treatment Upcoming Encounters Date Type Specialty Care Team Description 03/15/2022 Office Visit Dermatology Kerry Clark MD 111 [facility], [facility] 3 [place], [place] [address] (Wo rk) documented as of this encounter Visit Diagnoses Diagnosis Adjustment disorder with mixed disturban ce of emotions and conduct - Primary documented in this encounter Care Teams Retail Merchandising Manager Relationship Specialty Start Date End Date Shanda Gomes MD PCP - General 04/30/19 1 [facility] 3 [place] [address] documented as of this encounter
--- OUTSIDE RECORDS SUMMARY | 2022-01-08 05:29 | XMS_ITS | Encounter Summary ---
:2000 Author Organization [facility] Address [address] [place] [address] Care Team Providers Name Role Phone Link, Shanda DUPREE Primary Care Provider Reason for Visit Reason Comments Psychotherapy Follow-up Encounter Details Date Type Department Care Team Description 05/20/2020 Telemedicine [facility] Laura Catherine Adjustment disorder Medical Psychology - 111 [facility] [place] [address] and depressed mood 111 [facility] (Primary Dx) [place] [address] [phone] Social History Tobacco Use Types Packs/Day Years [...] or relatives? How often do you attend gnosticism or Never 2020 confucianism services? Do you belong to any clubs or No 12/16/2020 organizations such as gnosticism groups, unions, fraternal or athletic groups, or [...] this encounter Progress Notes Ann-Marie Torres - 05/20/2020 1500 EDT Due to computer system disruption, additional clinical information for this visit will be scanned into the chart. For patients, please refer to guidance in [employer] on how to locate information. Generally this information will appear as a scanned documents saved in My Documents activity. documented in this encounter Plan of Treatment Upcoming Encounters Date Type Specialty Care Team Description 03/15/2022 Office Visit Dermatology Kerry Clark MD 111 [facility], [facility], Level [address] [place], [place] [phone] (Wo rk) documented as of this encounter Visit Diagnoses Diagnosis Adjustment disorder with mixed anxiety a nd depressed mood - Primary documented in this encounter Care Teams Stuntman Relationship Specialty Start Date End Date Shanda Gomes MD PCP - General 04/30/19 1 [facility] Level 3 [place] [address] documented as of this encounter
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
--- OUTSIDE RECORDS SUMMARY | 2022-01-08 05:29 | XMS_ITS | Encounter Summary ---
:2002 Author Organization [facility] Address [address] [place] [address] Care Team Providers Name Role Phone Link, Shanda DUPREE Primary Care Provider Reason for Visit Reason Comments Telemedicine Video Visit Encounter Details Date Type Department Care Team Description 05/06/2020 Telemedicine [facility] Laura Catherine Adjustment disorder Medical Psychology - 111 [facility] [place] [address] and depressed mood 111 [facility] (Primary Dx) [place] [address] [phone] Social History Tobacco Use Types Packs/Day Years [...] or relatives? How often do you attend episcopal or Never 2020 sikh services? Do you belong to any clubs or No 12/16/2020 organizations such as episcopal groups, unions, fraternal or athletic groups, or [...] Office Visit Dermatology Kerry Clark MD 111 [facility] Level 3 [place], [place] [address] (Wo rk) documented as of this encounter Visit Diagnoses Diagnosis Adjustment disorder with mixed anxiety a nd depressed mood - Primary documented in this encounter Care Teams Comic Book Artist Relationship Specialty Start Date End Date Shanda Gomes MD PCP - General 04/30/19 1 [facility] Level 3 [place] [address] documented as of this encounter
--- OUTSIDE RECORDS SUMMARY | 2022-01-08 05:29 | XMS_ITS | Encounter Summary ---
:2002 Author Organization [facility] Address [address] [place] [address] Care Team Providers Name Role Phone Link, Shanda DUPREE Primary Care Provider Reason for Visit Reason Onset Date Comments Coordination Of Care 08/13/2019 Encounter Details Date Type Department Care Team Description 08/13/2019 Telephone [facility] Ayah Vale RN Coordination Of Care Pediatric Primary Care - [address] [address] Social History Tobacco Use Types [...] or relatives? How often do you attend nondenominational or Never 2020 baptist services? Do you belong to any clubs or No 12/16/2020 organizations such as nondenominational groups, unions, fraternal or athletic groups, or [...] Telephone Encounter - Saul Barroso RN - 08/15/2019 1121 EST Documents given to Dr Eliseo Rojas here today for Nurse Visit for Imms elephone Encounter - Kirk Mehta RN - 08/14/2019 1506 EST Records from [facility] reviewed - lists additional vaccines -concerning for didactic error as many have similar dates. Asked school to fax their sources for imms for our review as we have no original documents. Received multiple documents with difficult to interpret dates. Suspect 2 documents are documenting same dates. Discussed with . Proceed with vaccines as ordered for 08/15/19 nurse visit unless instructed otherwise by . to review documents supplied by [facility] to determine history, future needs for vaccinations. Docs at triage. elephone Encounter - Kirk Mehta RN - 08/14/2019 1444 EST Imms ordered as directed. Hx Flu vaccine this season 04/30/19 so not ordered. elephone Encounter - Jimmy Cox MD - 08/14/2019 1430 EST I would recommend the following vaccines in order of importance: 1. Polio 2. Td 3. Varicella 4. Hep A 5. Flu Return in 6 months for 1. Polio #3 2. Hep A #2 Jimmy Cox MD Telephone Encounter - Kirk Mehta RN - 08/14/2019 1131 EST Images from the original note were not included. Reviewed [facility] imms registry which matches Epic record here. Below are recommendations from Imms registry which mirror needs identified in our SnapShot. Td, Varicella #2, IPV #2, Hep A #1 and Meningococcal #1 identified as needs. Following administering of vaccines on 08/14/19 SnapShot should update with dates for next vaccine needs. School will need list of all vaccines given at 08/15/2019 ov and date of next appointment for immunization update handed to family to bring to school. elephone Encounter - Ayah Vale RN - 08/13/2019 1119 EST P/c from mom, The imms records on file are all she has. Scheduled OV for catch up. elephone Encounter - Shanda Gomes MD - 08/13/2019 1023 EST Reviewed available records this am. Per mom's recollection, Crystal has received other vaccines and may possibly be fully vaccinated, however, additional records have not yet been provided as requested. I would recommend the following: Consider Titers for Hep B Begin vaccination catch up schedule. Shanda Gomes MD 08/13/2019 10:23 elephone Encounter - Ayah Vale RN - 08/13/2019 0955 EST Attempted to call mom to reconcile imms record that was received from [place] [facility]. Noted that the school record has Meningococcal was also given 06/09/15 MMR 03/31/13 Varicella 07/28/13 Polio 03/31/13 DTP 03/31/13 Will fax our imms record to school nurse. Dr. Gomes aware of situation and that we are trying to call mom to make plan to do catch up documented in this encounter Plan of Treatment Upcoming Encounters Date Type Specialty Care Team Description 03/15/2022 Office Visit Dermatology Kerry Clark MD 111 [facility], [facility], Level [address] [place], [place] [phone] (Wo rk) documented as of this encounter Visit Diagnoses Diagnosis Need for hepatitis A vaccination - Prima ry Need for prophylactic vaccination and in oculation against viral hepatitis Need for polio vaccination Need for prophylactic vaccination and in oculation against poliomyelitis Need for hepatitis B vaccination Need for prophylactic vaccination and in oculation against viral hepatitis Need for chickenpox vaccination Need for prophylactic vaccination and in oculation against varicella Need for Td vaccine Need for prophylactic vaccination with t etanus-diphtheria (Td) documented in this encounter Orders Immunization/Injection Count Last Ordered Date First O rdered Date HEPATITIS A VACCINE PED-ADOL 1 08/14/2019 (HAVRIX/VAQTA) 2 DOSE IM POLIOVIRUS VACCINE IPV IM OR SQ 1 08/14/2019 TD (ADULT) 5 LF VACCINE (TENIVAC) 1 08/14/2019 PRESERVATIVE FREE =>7YO IM VARICELLA (CHICKENPOX) VACCINE (VARIVAX) 1 020 SQ documented in this encounter Care Teams Centerpuncher Relationship Specialty Start Date End Date Shanda Gomes MD PCP - General 04/30/19 1 [facility] [address] [place] [address] documented as of this encounter
--- OUTSIDE RECORDS SUMMARY | 2022-01-08 05:29 | XMS_ITS | Encounter Summary ---
:[address] [facility] Address [address] [place] [address] Care Team Providers Name Role Phone Shanda Grace MD Primary Care Provider Reason for Visit Reason Onset Date Comments Prior Auth, Medication 09/14/2019 Encounter Details Date Type Department Care Team Description 09/14/2019 Telephone [facility] Shanda Grace MD Prior Auth, Medication Primary Care Weekend [address] [place], [place] [id number] [place] [address] [phone] (Wo rk) Social History Tobacco Use [...] or relatives? How often do you attend adventist or Never 2020 mosque services? Do you belong to any clubs or No 12/16/2020 organizations such as adventist groups, unions, fraternal or athletic groups, or [...] encounter Miscellaneous Notes Telephone Encounter - Shanda Grace MD - 09/22/2019 1843 EST Retin-A preferred sounds good to me! 0.05% Thanks! Shanda Grace MD 09/22/2019 18:44 elephone Encounter - Paola Bowden RN - 09/19/2019 1529 EST Note left to Dr Grace, to determine what she would like to do with medication. elephone Encounter - Palak Trujillo - 09/14/2019 1403 EST Images from the original note were not included. [employer]' has sent a PA request for Retin-A Micro (tretinoin Microsphere) .06% gel pump. Please advise if you would like to change to order. If you would like to go for the Prior auth, patient needs to have tried [employer] or Retin-A preferred, and has indication of Acne Vulgaris, actinic keratosis or rosacea. documented in this encounter Plan of Treatment Upcoming Encounters Date Type Specialty Care Team Description 03/15/2022 Office Visit Dermatology Kerry Clark MD 111 [facility], [facility], Level [address] [place], [place] [address] (Wo rk) documented as of this encounter Visit Diagnoses Not on filedocumented in this encounter Care Teams Food And Beverage Service Manager Relationship Specialty Start Date End Date Eliseo, MD Shanda PCP - General 04/30/19 1 [facility] 3 [place] [address] documented as of this encounter
--- OUTSIDE RECORDS SUMMARY | 2022-01-08 05:29 | XMS_ITS | Encounter Summary ---
:2002 Author Organization [facility] Address [address] [place] [address] Care Team Providers Name Role Phone Link, Shanda DUPREE Primary Care Provider Reason for Visit Reason Comments Telemedicine Video Visit tele Encounter Details Date Type Department Care Team Description 04/29/2020 Telemedicine [facility] Laura Catherine Adjustment disorder Medical Psychology - 111 [facility] [place] [address] and depressed mood 111 [facility] (Primary Dx) [place] [address] [phone] Social History Tobacco Use Types Packs/Day Years [...] do you attend scientology or Never 2020 temple services? Do you [...] Office Visit Dermatology Kerry Clark MD 111 [facility] 3 [place], [place] [address] (Wo rk) documented as of this encounter Visit Diagnoses Diagnosis Adjustment disorder with mixed anxiety a nd depressed mood - Primary documented in this encounter Care Teams Gourmet Coffee Attendant Relationship Specialty Start Date End Date Shanda Gomes MD PCP - General 04/30/19 1 [facility] Level [address] [place] [address] documented as of this encounter
--- OUTSIDE RECORDS SUMMARY | 2022-01-08 05:29 | XMS_ITS | Encounter Summary ---
:2002 Author Organization [facility] Address [address] [facility] [place] [address] Care Team Providers Name Role Phone Link, Shanda DUPREE Primary Care Provider Reason for Visit Reason Comments Immunizations Pt arrived with her mom and brother for catch up immunizations. Encounter Details Date Type Department Care Team Description 08/15/2019 Nurse Only [facility], [facility] Need for Td vaccine (Primary Dx); [facility] Need for varicella vaccine; Primary Care - Need for prop hylactic vaccination against poliomyelitis using inactivated poliovirus vaccine (IPV); [place] Need for immunization agains t influenza; [address] [place] [address] Need for vaccination [place] [address] Social History Tobacco Use Types Packs/Day Years [...] or relatives? How often do you attend restoration or Never 2020 confucianist services? Do you belong to any clubs or No 12/16/2020 organizations such as restoration groups, unions, fraternal or athletic groups, or [...] documented as of this encounter Progress Notes Gabo Bowen LPN - 08/15/2019 0915 EST Pt in for catch up immunizations accompanied by her mom and brother. GABO BOWEN LPN 08/15/201910:34 documented in this encounter Plan of Treatment Upcoming Encounters Date Type Specialty Care Team Description 03/15/2022 Office Visit Dermatology Kerry Clark MD 111 [facility], [facility], Level [address] [place] [address] (Wo rk) documented as of this encounter Visit Diagnoses Diagnosis Need for Td vaccine - Primary Need for prophylactic vaccination with t etanus-diphtheria (Td) Need for varicella vaccine Need for prophylactic vaccination and in oculation against varicella Need for prophylactic vaccination agains t poliomyelitis using inactivated poliovirus vaccine (IPV) Need for immunization against influenza Need for prophylactic vaccination and in oculation against influenza Need for vaccination against hepatitis A Need for prophylactic vaccination and in oculation against viral hepatitis documented in this encounter Orders Immunization/Injection Count Last Ordered Date First O rdered Date HEPATITIS A VACCINE PED-ADOL 1 08/15/2019 (HAVRIX/VAQTA) 2 DOSE IM POLIOVIRUS VACCINE IPV IM OR SQ 1 08/15/2019 TD (ADULT) 2 LF VACCINE =>7YO IM 1 08/15/2019 VARICELLA (CHICKENPOX) VACCINE (VARIVAX) 1 020 SQ documented in this encounter Care Teams Muck Operator Relationship Specialty Start Date End Date Shanda Gomes MD PCP - General 04/30/19 1 [facility] 3 [place] [phone] documented as of this encounter
--- OUTSIDE RECORDS SUMMARY | 2022-01-08 05:29 | XMS_ITS | Encounter Summary ---
:2002 Author Organization [facility] Address [address] [place] [address] Care Team Providers Name Role Phone Essence Hall MD Primary Care Provider [phone] Shanda Gomes MD Primary Care Provider Reason for Visit Reason Onset Date Comments Medical Records 04/25/2019 Appointment Related 04/25/2019 Encounter Details Date Type Department Care Team Description 04/25/2019 Telephone [facility]ence [facility] Medica l Records; [facility] Pediatric MD Ceci Appointment Related Primary Care - [address] [phone] (Wo rk) Social History Tobacco Use Types [...] or relatives? How often do you attend anglican or Never 2020 bahai services? Do you belong to any clubs or No 12/16/2020 organizations such as anglican groups, unions, fraternal or athletic groups, or [...] Notes Telephone Encounter - Palak Trujillo - 05/15/2019 0950 EDT Immunizations have been scanned in the chart - no medical records have been scanned as of yet. Telephone Encounter - Gabo Bowen LPN - 04/29/2019 1332 EDT Nursing has not received any records on this pt as of today. GABO BOWEN LPN 04/29/2019 13:32 elephone Encounter - Toshia Bailon - 04/25/2019 1533 EDT Mom spoke with PAS and she will drop off records this weekend elephone Encounter - Palak Trujillo - 04/25/2019 1318 EDT Per request of Saskia/Emma HOBBS with pts family regarding having the pts medical records faxed or dropped off to our office before her NPV visit on 04.30.19. documented in this encounter Plan of Treatment Upcoming Encounters Date Type Specialty Care Team Description 03/15/2022 Office Visit Dermatology Kerry Clark MD 111 [facility], [facility], Level [address] [place], [place] [phone] (Wo rk) documented as of this encounter Visit Diagnoses Not on filedocumented in this encounter Care Teams Bridge Rigger Relationship Specialty Start Date End Date Essence Hall MD PCP - General 03/31/19 04/29/19 Shanda Gomes MD PCP - General 04/30/19 1 [facility] 3 [place] [phone] documented as of this encounter
--- OUTSIDE RECORDS SUMMARY | 2022-01-08 05:29 | XMS_ITS | Encounter Summary ---
:2002 Author Organization [facility] Address [address] [place] [address] Care Team Providers Name Role Phone Shanda Gomes MD Primary Care Provider Reason for Visit Reason Comments Follow-up Video visit via Zoom for rosa sorenson Encounter Details Date Type Department Care Team Description 03/19/2020 Telemedicine [facility] [place] [facility] Shanda Gomes M D [facility] Pediatric [address] [place] [address] ([facility]) (Primary Primary Care - Street Dx) North Level [address] [place] [phone] (Wo rk) Social History Tobacco Use Types [...] do you attend episcopal or Never 2020 bahai services? Do you [...] documented as of this encounter Progress Notes Shanda Gomes MD - 03/19/2020 1500 EDT Subjective: Patient ID: Crystal Broderick is an 19 y.o. female. Chief Complaint Patient presents with ??? Follow-up Video visit via Zoom for mood PEDIATRIC OUTPATIENT VIDEO VISIT DURING CORONAVIRUS PRECAUTIONS The concept of ???Telemedicine?? has been described [...] in patient???s medical or mental health care. Today's visit was provided through telemedicine video conferencing: The location of the patient : Home The location of the provider: Clinic Exam Room The following staff and their role did participate in today's encounter visit: Shanda Fierro I spent a total of 30 minutes face to face with the patient/family today and 30 minutes of that timewere spent in counseling/coordinating care for the diagnoses and problems discussed. HPI Got a little angry and frustrated earlier this week and threw out the sertraline. Does not wish to restart. Began to note side effects, appetite down, tired all the time. Has been seeing friends regularly, goes to gym a few times each week. Just established care today with psychological services for CBT. Disease Management: N/A Patient Active Problem List [...] Reported on 02/24/2020) 1 Tube 1 ??? sertraline (ZOLOFT) 25 mg tablet Take 1 Tab by mouth daily. 30 Tab 2 ??? sulfamethoxazole-trimethoprim (BACTRIM/CO-TRIMOXAZOLE DS) 800-160 mg per [...] all orders for this visit: Mild depression ([facility]) Supervisor Char [facility] was not used. Does not wish to restart sertraline or other medicaiton at this time. Emphasized great that she has established supportive therapies and to continue physical activity which is mood supportive. She can reach out to us if needed and I will see her in June for HS. PHQ elevated scores, but having some anger, frustration last few days, today doing better. Has implemented new supports. Shanda Gomes MD 03/19/2020 15:38 documented in this encounter Plan of Treatment Upcoming Encounters Date Type Specialty Care Team Description 03/15/2022 Office Visit Dermatology Kerry Clark MD 111 [facility], [facility], Level [address] [place], [place] [phone] (Wo rk) documented as of this encounter Visit Diagnoses Diagnosis Mild depression (HCC-CMS) (HCC) - Primar y Depressive disorder, not elsewhere class ified documented in this encounter Care Teams Traffic Chief Relationship Specialty Start Date End Date Shanda Gomes MD PCP - General 04/30/19 1 [facility] Level [address] [place] [phone] documented as of this encounter
--- OUTSIDE RECORDS SUMMARY | 2022-01-08 05:29 | XMS_ITS | Encounter Summary ---
:2002 Author Organization [facility] Address [address] [place] [address] Care Team Providers Name Role Phone Link, Shanda DUPREE Primary Care Provider Reason for Visit Reason Onset Date Comments Follow-up 03/02/2020 Encounter Details Date Type Department Care Team Description 03/02/2020 Telephone [facility] Kirk Frederick RN Follow-up Pediatric Primary Care - [address] [address] Social History Tobacco Use Types [...] do you attend anabaptist or Never 2020 taoist services? Do you [...] Telephone Encounter - Shanda Gomes MD - 03/02/2020 0916 EDT Thank you!!! Shanda Gomes MD 03/02/2020 9:16 elephone Encounter - Dixie Knott RN - 03/02/[address] Gomes asked that triage check in on this patient re: 1 week out from starting new medicine PC to pt who states she is doing ok. She feels things are going well. She is not experiencing any side effects or thoughts of self harm or harm to others. She will continue to take the meds as directed Communicated will route this follow up call to Dr Gomes for review and if any other information is needed, will call pt back. Pt agrees with plan. No barriers to learning identified elephone Encounter - Kirk Frederick RN - 03/02/2020 0806 EDT From 02/23 OV: - sertraline (ZOLOFT) 25 mg tablet; Take 1 Tab by mouth daily. ? Collections Agent was not used. ?? 03/19 3 pm, Zoom call. ?? Discussed side effects of SSRI. ?? Plan to call in one week to check on side effects. ?? Discussed what to do if SI develops. ?? Plan to refer to Psychology for CBT. ?? Follow up in 4 weeks. ?? Crystal cell: [phone] signed by Kirk Frederick RN at 03/02/2020 8:07 EDTTelephone Encounter - Kirk Frederick RN - 03/02/2020 0805 EDT ----- Message from Shanda Gomes MD sent at 02/24/2020 15:41 EDT ----- Regarding: Sertraline started Hi, Can we give Crystal a call, please call her cell, embedded in the Psych referral from 02/24/2020. Shanda Gomes MD 02/24/2020 15:43 documented in this encounter Plan of Treatment Upcoming Encounters Date Type Specialty Care Team Description 03/15/2022 Office Visit Dermatology Kerry Clark MD [address] [place] [address], [facility] Level [address] [place], [place] [phone] (Wo rk) documented as of this encounter Visit Diagnoses Not on filedocumented in this encounter Care Teams Job Developer For Deaf Adults Relationship Specialty Start Date End Date Shanda Gomes MD PCP - General 04/30/19 1 [facility] Level [address] [place] [address] documented as of this encounter
[2022-01-08 05:31] VITALS: BP 170/65; PULSE 55; RESP 16; TEMP 36.6; O2SAT 100
[2022-01-08 05:40] LABS: Bilirubin Negative (Negative); Blood Large (Negative); Clarity Sl Cloudy (Clear); Glucose Negative (Negative); Ketones Negative (Negative); Leukocyte Esterase Large (Negative); Nitrite Negative (Negative); Specific Gravity 1.015 (1.005-1.025); Urobilinogen 0.2 EU/dL (Up TO 0.2)
--- NOTE | 2022-01-08 05:41 | ED.GENADUL_ITS ---
Discharge Plan Disposition Patient Disposition: HOME Condition: Stable Discharge Details Clinical Impression: Urinary tract infection Primary Care Provider: Shanda Gomes ED Provider: Duran Spears Home Meds and New Rx's Prescriptions: New cefpodoxime 100 mg tablet 100 mg PO BID 5 Days Qty: 10 0RF Rx Instructions: must administer with a meal/food phenazopyridine [Pyridium] 200 mg tablet 200 mg PO BID 3 Days Qty: 6 0RF Discharge Instructions Instructions: Urinary Tract Infection in Women (ED) Additional Instructions: Please take medications as prescribed. Please return to the emergency department if you develop worsening symptoms back pain nausea vomiting fevers chills or other abnormal symptoms. Please follow-up with your primary care physician. Medical Decision Making 21-year-old female history of UTIs presents with suprapubic discomfort, dysuria, urgency, denies vaginal bleeding or discharge, no back pain fevers chills nausea or vomiting. Patient is hemodynamically stable resting comfortably no acute distress. [id number] test is negative. High clinical suspicion for UTI, no evidence of pyelonephritis at this time, less likely kidney stone constipation colitis or other systemic infection. Awaiting results of UA likely will treat with antibiotic and Pyridium. Will encourage patient to follow-up with a primary care physician. 6: 06 evidence of UTI will give first dose of cefpodoxime and Pyridium here in the department. Patient to follow-up with primary care physician. HPI General Date/Time Provider Initiated Documentation: 01/08/22 05:23 . HPI Narrative: 21-year-old female history of UTIs presents with urinary symptoms with the past several days including suprapubic discomfort urgency and dysuria. Denies vaginal bleeding or discharge. Denies new sexual partner. Denies back pain fevers chills or other systemic symptoms. Endorses that she was attempting to get into see her primary however there was no appointment available until . Related Data Home Medications Medication Instructions Recorded Confirmed cefpodoxime 100 mg tablet 100 mg PO BID 5 days #10 tabs 01/08/22 phenazopyridine 200 mg tablet 200 mg PO BID 3 days #6 tabs 01/08/22 (Pyridium) Previous Rx's Medication Instructions Recorded cefpodoxime 100 mg tablet 100 mg PO BID 5 days #10 tabs 01/08/22 phenazopyridine 200 mg tablet 200 mg PO BID 3 days #6 tabs 01/08/22 (Pyridium) Allergies Allergy/AdvReac Type Severity Reaction Status Date / Time No Known Allergies Allergy Unverified 01/08/22 05:36 General Stated Complaint: Urinary EULALIO: 3 Review of Systems Narrative: Review of Systems Constitutional: negative Eyes: negative ENT: negative Cardiovascular: negative Respiratory: negative Gastrointestinal: negative : Dysuria Musculoskeletal: negative Skin: negative Neurologic: negative Psych: negative PFSH All Active Problems (Updated 01/08/22 @ 06:07 by Duran Spears MD) Urinary tract infection (Acute) Social History Smoking/Tobacco Use Status: Never Smoking risk assessment performed?: Yes Alcohol Intake: never Substance use type: does not use Do you feel safe at home: Yes Do you feel safe in your relationship?: Yes Exam Narrative Exam Narrative: Physical Examination General: alert, awake, cooperative, resting comfortably, no acute distress HEENT: normocephalic, atraumatic; PERRL, EOM intact, conjunctiva normal; no nasal discharge; moist mucous membranes, oral and pharyngeal mucosa normal, tolerating secretions Neck: supple, trachea midline; full ROM Chest: normal to inspection Respiratory: normal respiratory effort, speaking in full sentences, clear to auscultation, no wheezing, rales or rhonchi Cardiac: regular rate, regular rhythm, S1S2 intact, no murmurs rubs or gallops GI: abdomen soft, non-tender, non-distended; no palpable mass or hepatosplenomegaly Skin: no lesions, rashes or trauma appreciated Neuro: AAOx3, normal speech, moving all extremities Psych: Appropriate mood and affect Course Vital Signs Vital signs: Vital Signs Temperature 36.6 C 01/08/22 05:31 Pulse 55 L 01/08/22 05:31 Respiratory Rate 16 01/08/22 05:31 Blood Pressure 170/65 H 01/08/22 05:31 Pulse Oximetry 100 01/08/22 05:31 Temperature 36.6 C 01/08/22 05:31 Temperature Source Temporal Artery Scan 01/08/22 05:31 Pulse 55 L 01/08/22 05:31 Respiratory Rate 16 01/08/22 05:31 Respiratory Effort Non-Labored 01/08/22 05:35 Blood Pressure 170/65 H 01/08/22 05:31 Blood Pressure Position Sitting 01/08/22 05:31 Pulse Oximetry 100 01/08/22 05:31 Oxygen Delivery Method Room Air 01/08/22 05:31 Oxygen Flow Rate 0 01/08/22 05:31 Pain Level 5 01/08/22 05:31 Lab/Test Results Lab/Test Results: POC- Test(urine) Negative
[2022-01-08 05:53] LABS: WBC >50 HPF (0-5)
[2022-01-08 05:54] LABS: Bacteria Moderate HPF (Negative); C & S Indicated? Yes; Casts Negative LPF (Negative); Crystals Negative HPF (Negative); Mucus Negative (Negative)
[2022-01-08] MEDS: Phenazopyridine 100 MG TAB PO (06:14)
[2022-01-08] MEDS: Cefpodoxime 200 MG TAB PO (06:14)
== END 2022-01-08 06:36 | disposition home or self-care (01) ==
PROVIDERS: Emergency Provider Emergency Medicine; PCP Pediatrics
DX: N39.0 Urinary tract infection, site not specified (principal); B96.20 Unspecified Escherichia coli [E. coli] as the cause of diseases classified elsewhere
CPT/HCPCS: 81025; 87077; 99283; 81003; 81015; 87086; 87186